=== PATIENT | male | born 1970 | race Two or more races ===

== ENCOUNTER 2017-08-07 09:59 | Emergency (ER) | payer BC ==
--- NOTE | 2017-08-07 11:01 | UC ---
Respiratory Complaint HPI - HPI Summary HPI Summary: began not feeling well last night ---this day sudden onset of SOB, sweating, chest heaviness-did not get a flu vaccine works in [employer] - History of Current Complaint Chief Complaint: UCRespiratory Stated Complaint: URI Time Seen by Provider: 08/07/17 11:05 Hx Obtained From: Patient Onset/Duration: Sudden Onset - begining to feel not well last night, Worse Since - this morning Timing: Constant Severity Initially: Moderate Severity Currently: Moderate Character: Cough: Nonproductive Aggravating Factors: Nothing Alleviating Factors: Nothing Associated Signs And Symptoms: Positive: Dyspnea, Chills - Allergies/Home Medications Allergies/Adverse Reactions: Allergies Allergy/AdvReac Type Severity Reaction Status Date / Time lidocaine Allergy Severe Difficulty Verified 08/07/17 11:13 Breathing trazodone Allergy Intermediate Vomiting Verified 08/07/17 11:13 Home Medications: Home Medications Albuterol HFA INHALER* [Ventolin HFA Inhaler*] 2 puff INH Q4HR 08/07/17 [ History Confirmed 08/07/17] Cyclobenzaprine TAB* [Flexeril 10 MG TAB*] 10 mg PO Q8HR 08/07/17 [History Confirmed 08/07/17] Fluticasone NASAL SPRAY 50MCG* [Flonase NASAL SPRAY 50MCG*] 1 spray NASAL DAILY 08/07/17 [History Confirmed 08/07/17] Hydrocodone/Acetaminophen [Hydrocodone-Acetamin 7.5-300] 1 tab PO TID PRN [History Confirmed 08/07/17] Lisinopril/HCTZ 20/25(NF) [Zestoretic 20/25(NF)] 1 tab PO DAILY 08/07/17 [ History Confirmed 08/07/17] Zolpidem Tartrate [Ambien] 10 mg PO DAILY 08/07/17 [History Confirmed 08/07/17] hydrOXYzine HCl [Hydroxyzine HCl] 10 mg PO DAILY 08/07/17 [History Confirmed 05/14] PMH/Surg Hx/FS Hx/Imm Hx Previously Healthy: No - chronic back pain Cardiovascular History: Other - cardiomyopathy Other Cardiovascular History: cardiomyopathy Respiratory History: Asthma - Surgical History Surgery Procedure, Year, and Place: splenic anuerysm. pulmonary emboli - Family History Known Family History: Positive: Cardiac Disease, Hypertension - Social History Occupation: Employed Full-time Lives: With Family Alcohol Use: None Substance Use Type: None Review of Systems Constitutional: Fever - 100.9 Skin: Negative Eyes: Negative ENT: Negative Respiratory: Shortness Of Breath Cardiovascular: Chest Pain Gastrointestinal: Negative Genitourinary: Negative Motor: Negative Neurovascular: Negative Musculoskeletal: Negative Neurological: Negative Psychological: Negative Is Patient Immunocompromised?: No All Other Systems Reviewed And Are Negative: Yes Physical Exam Triage Information Reviewed: Yes Appearance: Ill-Appearing, Pain Distress, Obese Vital Signs Reviewed: Yes Eye Exam: Normal Eyes: Positive: Conjunctiva Clear ENT Exam: Normal ENT: Positive: Normal ENT inspection, Hearing grossly normal, Pharynx normal. Negative: Nasal congestion, Nasal drainage Dental Exam: Normal Neck exam: Normal Neck: Positive: Supple, Nontender Respiratory Exam: Normal Respiratory: Positive: Chest non-tender, Lungs clear, Normal breath sounds, No accessory muscle use, Respiratory distress - mild-moderate SOB Cardiovascular Exam: Normal Cardiovascular: Positive: No Murmur, Pulses Normal, Brisk Capillary Refill, Tachycardia Musculoskeletal Exam: Normal Musculoskeletal: Positive: Strength Intact, ROM Intact, No Edema Neurological Exam: Normal Neurological: Positive: Alert, Muscle Tone Normal, Fatigued Psychological Exam: Normal Skin Exam: Normal UC Diagnostic Evaluation - EKG Cardiac Rate: Tachycardia Cardiac Rhythm: Sinus: Normal Ectopy: None ST Segment: Non-Specific Respiratory Course/Dx - Course Course Of Treatment: IV O2, EKG Transfer to ED Via EMS - Differential Dx/Diagnosis Provider Diagnoses: Shortness of breath, Chest Heaviness Discharge - Discharge Plan Condition: Guarded Disposition: [facility] Referrals: No Primary Care Phys,NOPCP [Primary Care Provider] -
[2017-08-07 11:12] VITALS: BP 141/83
== END 2017-08-07 11:25 | disposition short-term general hospital (02) ==
LOC: UCEAST 09:59
DX: R06.02 Shortness of breath (principal); R07.89 Other chest pain; I42.9 Cardiomyopathy, unspecified
CPT/HCPCS: 93005; 99203; G0463

== ENCOUNTER 2017-08-07 11:52 | Inpatient (IN) | payer BC ==
[2017-08-07] MEDS ORDERED: NS 0.9% 1000 ML* 1,000 ML IV ONE ×2 (12:15→20:31)
[2017-08-07] MEDS ORDERED: Acetaminophen TAB* 325 MG PO ONE ×2 (12:17→17:19)
[2017-08-07 12:32] LABS: ABS Basophils 0.1 10^3/ul (0-0.2); ABS Eosinophils 0.1 10^3/ul (0-0.6); ABS Monocytes 1.4 10^3/ul (0-0.8); ABS Neutrophils 16.6 10^3/ul (1.5-7.7); ABS Nucleated RBC 0 10^3/ul; Eosinophil % 0.6 % (0-6); Hematocrit 52 % (42-52); Hemoglobin 17.5 g/dl (14.0-18.0); Mean Corpuscular HGB Conc 34 g/dl (31-36); Mean Corpuscular Hemoglobin 28 pg (27-31); Mean Corpuscular Volume 82 fL (80-94); Mean Platelet Volume 8 um3 (7.4-10.4); Nucleated Red Blood Cells % 0; Platelet Count 273 10^3/ul (150-450); Red Blood Count 6.33 10^6/ul (4.0-5.4); Red Cell Distribution Width 15 % (10.5-15); White Blood Count 19.2 10^3/ul (3.5-10.8)
--- NOTE | 2017-08-07 13:15 | RAD ---
Indication: Upper respiratory infection. Shortness of breath. Possible flu. Comparison: No relevant prior exams available [place] [facility] [place]. Technique: Upright AP 1245 hours Report: Patchy alveolar and interstitial opacities. Grossly clear pleural spaces. Negative for pneumothorax. Upper normal heart size. Unremarkable central pulmonary vasculature. Diffuse central airway wall thickening. IMPRESSION: The constellation of findings favors airway inflammation/bronchitis and bronchopneumonia.
[2017-08-07] MEDS ORDERED: Ondansetron INJ* 2 MG/ML VIAL IV ONE (13:46)
[2017-08-07] MEDS ORDERED: Morphine INJ* 4 MG/ML 1 ML CARPUJECT IV ONE ×2 (13:46→17:22)
[2017-08-07] MEDS ORDERED: Morphine INJ* 4 MG/ML 1 ML SYRINGE (NEW SYRINGE VERSION) ONE (14:05)
[2017-08-07 14:27] LABS: Urine Appearance Clear; Urine Blood Negative (Negative); Urine Color Yellow; Urine Ketones Negative (Negative); Urine Protein Negative (Negative); Urine Specific Gravity 1.013 (1.010-1.030); Urine Urobilinogen Negative (Negative)
[2017-08-07] MEDS ORDERED: cefTRIAXone(*) 1 GM in NS 0.9% 50 ML* 50 ML IVPB ONE (15:30)
[2017-08-07] MEDS ORDERED: Azithromycin IV* 500 MG ADVAN VIAL/BAG IVPB ONE (16:22)
[2017-08-07] MEDS ORDERED: Vancomycin(*) 1,000 MG in NS 0.9% 250 ML* 250 ML IVPB ONE (17:21)
[2017-08-07] MEDS ORDERED: Metoclopramide IV* 5 MG/ML 2 ML VIAL IV ONE (17:23)
[2017-08-07] MEDS ORDERED: fentaNYL* 50 MCG/ML 2 ML VIAL (100 MCG VIAL) IV SLOW PU ONE (17:23)
[2017-08-07] MEDS ORDERED: Acetaminophen TAB* 325 MG PO PRN (17:31)
[2017-08-07] MEDS ORDERED: Morphine INJ* 4 MG/ML 1 ML SYRINGE (NEW SYRINGE VERSION) IV PRN (17:31)
[2017-08-07] MEDS: NS 0.9% 1000 ML* 1,000 ML IV SCH ×2 (17:35→22:01)
[2017-08-07] MEDS ORDERED: Albuterol HFA INHALER* 8 gm MDI INH SCH (18:00)
[2017-08-07] MEDS ORDERED: Iohexol 350* (CONTRAST) 500 ML MDV IV ONE (18:55)
--- NOTE | 2017-08-07 19:27 | RAD ---
Indication: Worst headache of life. Sepsis. Comparison: No relevant prior exams available [place] [facility] [place]. Technique: Noncontrast CT vertex of skull through foramen magnum. Report: The sulci, ventricles, and basal cisterns are normal for age. Eldridge matter white matter differentiation is preserved without evidence for edema. No intra or extra axial hemorrhage, mass, or fluid collection detected. Unremarkable visualized orbital contents. Unremarkable calvarium and skull base. Unremarkable scalp. The visualized paranasal sinuses and mastoid air spaces are clear. IMPRESSION: Negative unenhanced head CT.
--- NOTE | 2017-08-07 19:38 | RAD ---
INDICATION: Sepsis. Tachycardia. Possible pneumonia. History of pulmonary embolism. COMPARISON: August 07, 2017 TECHNIQUE: Multidetector CT images were obtained from the lung apices to the upper abdomen with 80 mL Omnipaque 350 IV contrast. Pulmonary angiogram protocol. Multiplanar reformation including with maximum intensity projection. REPORT: Rounded irregular margin 3.5 cm AP by 3.9 cm transverse region of airspace consolidation at the superior segment of the LEFT lower lobe with mass effect on the major fissure anteriorly. The region of consolidation contains bronchovascular markings/air bronchograms. Aside from minimal basilar atelectasis the lungs and pleural spaces are otherwise clear. Negative for thoracic lymphadenopathy. Negative for cardiomegaly or pericardial effusion. Normal diameter thoracic aorta without evidence for dissection. Suboptimal opacification of the pulmonary arteries limits the CT pulmonary angiogram. No filling defects are identified to the segmental and where conspicuous subsegmental pulmonary arteries to indicate pulmonary embolism. Enlargement of the main pulmonary artery measuring up to 3.9 cm transverse diameter compared to the adjacent ascending aorta measuring only 3.2 cm. Coils at the splenic artery corresponding with history of splenic artery aneurysm. Diffuse fatty infiltration of the liver. Negative for suspicious osseous lesions. Multilevel segmental ossification of the anterior longitudinal ligament of the thoracic spine consistent with Diffuse Idiopathic Skeletal Hyperostosis (DISH). IMPRESSION: 1. Rounded consolidation at the superior segment of the LEFT lower lobe is most consistent with pneumonia however imaging follow-up after therapy is warranted to assess for resolution and exclude neoplastic lesion. 2. Mildly limited CT pulmonary angiogram without compelling evidence for pulmonary embolism. 3. Enlargement of the main pulmonary artery suspicious for pulmonary arterial hypertension.
[2017-08-07] MEDS ORDERED: Ondansetron INJ* 2 MG/ML VIAL IV PRN (20:31)
[2017-08-07] MEDS: Morphine INJ* 4 MG/ML 1 ML CARPUJECT IV PRN (21:18)
[2017-08-07] MEDS: Heparin VIAL(*) 5000 UNITS/ML VIAL (FIVE THOUSAND) SUBCUT SCH (21:19)
[2017-08-07] MEDS: Cyclobenzaprine TAB* 10 MG PO SCH (21:27)
[2017-08-07] MEDS: hydrOXYzine HCL TAB* 10 MG PO PRN (21:28)
[2017-08-07] MEDS: CMCS:Melatonin (NF) 3 MG TAB PO SCH (21:28)
[2017-08-07] MEDS ORDERED: Albuterol 2.5 MG/3 ML NEB.SOL* (0.083%) INH PRN (21:32)
[2017-08-08] MEDS: Morphine INJ* 4 MG/ML 1 ML CARPUJECT IV PRN ×4 (02:07→22:05)
--- NOTE | 2017-08-08 03:05 | HP ---
CC: Dr. Diaz, [facility] * HISTORY AND PHYSICAL: DATE OF ADMISSION: 08/07/17 PRIMARY CARE PROVIDER: Dr. Diaz. MY ATTENDING WHILE IN HOSPITAL: Dr. Los Rodriguez.* (DICTATED BY OLIVERIO FRANKLIN) CHIEF COMPLAINT: Headache and general fatigue for 1 day. HISTORY OF PRESENT ILLNESS: Mr. Pederson is a 46-year-old male with a past medical history significant for asthma, hypertension, anxiety, and multiple unprovoked blood clots, who presents with 1 day of general weakness, fevers, headache, and difficulty breathing. The patient states that last night he felt very weak with no provoking factors, went to bed, woke up and feeling better, went to work, and at work, developed nausea and vomiting and the worst headache of his life. The patient also felt diaphoretic and had increased shortness of breath. 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 The patient describes his headache as being mainly frontal as well as traveling back across the top of his head to the base of his skull. The patient also states it goes down the back of his spine and his neck, but it hurts when moving his neck. The patient also had chest pain that started today in the morning. It is a dull ache below his left chest. It is not made worse by activity, does not radiate. There are no palliating or provoking factors. The patient complains of mild photophobia and states this is the worst headache of his life. The patient has had intermittent hand numbness in his left hand over the course of the past couple of days however, this preceded any of his other symptoms. The patient has had occasional nonproductive cough. The patient states his urine has been dark and he has had a couple of episodes of blurry vision. The patient was previously admitted to [facility] for 2 months in 2013 for unprovoked splenic artery thrombosis as well as multiple PEs and pneumonia. The patient states that he had a hypercoagulability workup at this time that did not have any conclusive results. The patient states that he was taken off anticoagulation 6 months after this episode. The patient states he had an IVC filter placed and removed at that time. While in the emergency room, the patient was found to have temperatures up to 102.8 after Tylenol. The patient was placed on 2 L nasal cannula for hypoxia. The patient's blood pressure was stable. The patient was persistently tachycardic up to the 120s. The patient's respiratory rate was slightly tachypneic. We were asked to evaluate for admission based on sepsis. The patient had 2 flu swabs both of which were negative. PAST MEDICAL HISTORY: Hypertension, anxiety, pneumonia, unprovoked PE, splenic artery thrombosis, MRSA cellulitis of his right knee, asthma. PAST SURGICAL HISTORY: Splenic embolectomy, IVC filter placement and removal, knee operation, removal of gynecomastia, and abdominoplasty. MEDICATIONS: 1. Lisinopril/hydrochlorothiazide 20/25 one tab p.o. daily. 2. Vicodin 7.5/300 one tab p.o. t.i.d. as needed. 3. Fluticasone nasal spray 1 spray nasal daily. 4. Flexeril 10 mg p.o. q.8 hours. 5. Albuterol 2 puffs inhalation q.4 hours as needed. 6. Breo Ellipta 200/25 one puff inhalation daily. 7. Hydroxyzine 10 mg p.o. t.i.d. as needed for anxiety. 8. Zolpidem 10 mg p.o. at bedtime. 9. Testosterone 200 mg IM Fridays. ALLERGIES: TRAZODONE, LIDOCAINE, IBUPROFEN. FAMILY HISTORY: The patient's mother and father both of them had MIs. The patient has strokes in his maternal grandparents and the patient's paternal grandparents of unknown cancers. SOCIAL HISTORY: The patient never smoked tobacco. The patient does not drink alcohol as it makes him nauseous. The patient smokes occasional marijuana. 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 At present, the patient is not and has 1 child. REVIEW OF SYSTEMS: A 14-point review of systems was reviewed and is negative except as above. PHYSICAL EXAMINATION GENERAL: The patient is a 46-year-old male, who appears his stated age and sitting in the bed, in [id number] distress from headache. HEENT: Head normocephalic, atraumatic. Sclerae anicteric. No conjunctival injection. Nasal mucosa moist. Oral mucosa moist. No pharyngeal erythema, discharge, or exudate. NECK: Tenderness to palpation over the left side of the neck. The patient had 1 episode of pain shooting down his back when his head was flexed forward. The patient has full range of motion of his neck. No nuchal rigidity. No carotid bruits auscultated. No lymphadenopathy. RESPIRATORY: Clear to auscultation bilaterally. No wheezes, rales, or rhonchi. Good air exchange bilaterally. Egophony negative. CARDIAC: Regular rate and rhythm. No murmurs, gallops, or rubs. Pulses 2+ in the bilateral dorsalis pedis, posterior tibialis, and radial areas. No bilateral lower extremity edema noted. No swelling in either calf. ABDOMEN: Soft, nontender, nondistended. Bowel sounds present and normoactive in all 4 quadrants. No hepatosplenomegaly. No abdominal bruits auscultated. NEURO: Cranial nerves II through XII intact except for transient blurring of the vision during testing of the visual aguirre to confrontation. Funduscopic exam unremarkable. Cerebellar testing performed without difficulty. Reflexes 2 + in the bilateral biceps, patellar, and ankle areas. Babinski is downgoing bilaterally. Strength preserved in upper and lower extremities distally and proximally. Sensation to light touch intact. PSYCHIATRIC: The patient is pleasant and cooperative. SKIN: Clean, dry, and intact. No rash. Scars consistent with previous gynecomastia reduction and abdominoplasty. DIAGNOSTIC STUDIES/LAB DATA: White blood cell count 6.33, hemoglobin 17.5, hematocrit 52, platelet count 273, neutrophil percent 86.6. Sodium 131, potassium 4.0, chloride 98, carbon dioxide 26, anion gap 7, BUN 15, creatinine 1.02, glucose 104, lactic acid 1.4, calcium 10.0. Bilirubin 0.8, AST 34, ALT 50 , alkaline phosphatase 65. Creatine kinase 396. Troponin I 0.00, 0.01, 0.01. C-reactive protein 7.4. BNP 19. Total protein 7.6, albumin 4.6, globulin 3.0, procalcitonin 0.1. Urine is benign. Influenza A and B negative x2. Electrocardiogram shows sinus tachycardia, early repolarization in V2, V3, and V4. No ST-T segment abnormalities. Left axis deviation. Chest x-ray read as constellation of findings favors airway inflammation/ bronchitis and bronchopneumonia. A brain CT read as negative on unenhanced head CT. Chest, thorax CTA read as chronic consolidation of superior segment of the left lower lobe, is most consistent with pneumonia. However, followup imaging after therapy is warranted to assess resolution to exclude neoplastic process. Limited CT, pulmonary angiogram without compelling evidence for pulmonary embolism, enlargement of the main pulmonary artery suspicious for pulmonary arterial hypertension. ASSESSMENT AND PLAN: Impression: The patient is a 46-year-old male with a past medical history significant for hypertension, asthma, pneumonia, unprovoked pulmonary embolism, and splenic artery thrombosis, who presents with 1 day of fevers, shortness of breath, weakness, and headache. The patient has a negative brain CT, equivocal meningeal signs without compelling evidence of meningitis on exam and confirmed lobar pneumonia on CT scan of the abdomen with negative scan for pulmonary embolism and will be admitted to the hospital for treatment of community- acquired pneumonia despite low procalcitonin as well as supportive care. 1. Lobar community-acquired pneumonia. The patient has confirmed community- acquired pneumonia on his CT scan of his chest. The patient will be admitted to the hospital for empiric therapy of ceftriaxone, azithromycin IV. The patient meets systemic inflammatory response syndrome criteria with tachycardia , fever, white blood cell count. The patient had 1 low blood pressure reading in 98/56 which is consistent with other readings. The patient is hypoxic. The patient is saturating well on 2 L of oxygen. The patient will have Streptococcus pneumoniae and legionella antigen collected. Sputum sample will also be collected. The patient will receive normal saline as part of the sepsis protocol. Tylenol for fevers. Recommend followup as above for resolution of lobar infiltrate. 2. Headache. The patient has described as the worst headache of his life since yesterday. The patient had an equivocal positive Brudzinski's, which initially had 1 episode of pain shooting down to his back, but was not reproducible with repeat exam. The patient had 2 episodes of blurring of his vision, which was transient. The patient had a negative CT of his head. The patient is septic, but has limited signs of meningitis. We will defer lumbar puncture at this time. The patient received 1 dose of vancomycin for empiric coverage of bacterial meningitis. We will not continue at this time. The patient should have a high index of suspicion for meningitis and a lumbar puncture should be performed if his mental status changes. 3. Asthma. Continue Ventolin inhaler and Breo Ellipta while in the hospital. The patient will have albuterol nebulizers available as needed for easing of shortness of breath. The patient's pulmonary exam does not have wheezing, does not indicate asthma exacerbation at this time. 4. Hypertension. Hold lisinopril and hydrochlorothiazide while in hospital due to sepsis. 5. Anxiety. Continue hydroxyzine. 6. History of unprovoked deep venous thrombosis. We will attempt to get records from the patient's hospitalization up [facility]. The patient does not have pulmonary embolism at this time. The patient has no signs of lower extremity deep venous thrombosis. The patient has pulmonary hypertension on his CTA of the chest. This could be a light complication of his pulmonary embolism. We will order an echocardiogram for the morning to assess left ventricular pressure and pulmonary artery pressure. This should be followed up outpatient when the patient is not acutely ill. 7. Chest pain. The patient has constant chest pain since yesterday, which has no palliating and provoking factors, not reproducible on palpation. The patient had no ischemic changes on his EKG and had negative troponins x3. An echo is ordered any way for the morning. This can also assess for wall motion abnormalities indicating acute coronary syndrome. This is unlikely at this point. 8. FEN. The patient will have a heart-healthy diet without caffeine. The patient will have fluids running at 125 mL an hour. For blood pressure support , the patient received 2 L boluses of normal saline. 9. DVT prophylaxis. The patient will have SCDs and heparin subcu while in the hospital. We will get records from [facility]. The patient may be a candidate for life-long anticoagulation due to his unprovoked pulmonary embolism. 10. Code status. The patient is a full code. The patient would like his surrogate decision maker to be Natasha Pla, who is his son's mother. 11. Disposition. The patient is admitted to inpatient. TIME SPENT: Approximately 90 minutes was spent on this admission, 45 of which was spent in [id number] with the patient obtaining history and physical and discussing treatment plan. This plan was discussed with my attending, Dr. Los Rodriguez, and he is in agreement. OLIVERIO FRANKLIN [id number]/[facility] #: [id number] CHARLENE
[2017-08-08] MEDS: NS 0.9% 1000 ML* 1,000 ML IV SCH ×2 (04:52→14:13)
[2017-08-08] MEDS: Cyclobenzaprine TAB* 10 MG PO SCH ×3 (06:13→22:06)
[2017-08-08] MEDS: Heparin VIAL(*) 5000 UNITS/ML VIAL (FIVE THOUSAND) SUBCUT SCH ×2 (06:16→22:05)
[2017-08-08 06:26] LABS: Hematocrit 44 % (42-52); Hemoglobin 14.7 g/dl (14.0-18.0); Mean Corpuscular HGB Conc 33 g/dl (31-36); Mean Corpuscular Hemoglobin 28 pg (27-31); Mean Corpuscular Volume 82 fL (80-94); Mean Platelet Volume 8 um3 (7.4-10.4); Platelet Count 214 10^3/ul (150-450); Red Blood Count 5.35 10^6/ul (4.0-5.4); Red Cell Distribution Width 15 % (10.5-15); White Blood Count 14.6 10^3/ul (3.5-10.8)
[2017-08-08 06:34] LABS: ABS Basophils 0 10^3/ul (0-0.2); ABS Eosinophils 0.1 10^3/ul (0-0.6); ABS Lymphocytes 1.6 10^3/ul (1.0-4.8); ABS Monocytes 1.6 10^3/ul (0-0.8); ABS Neutrophils 11.3 10^3/ul (1.5-7.7); ABS Nucleated RBC 0 10^3/ul; Eosinophil % 0.5 % (0-6); Lymphocyte % 10.9 % (25-47); Nucleated Red Blood Cells % 0.1
[2017-08-08 06:37] LABS: EGFR Non-African American 90.1 (>60)
[2017-08-08] MEDS: Fluticasone/Vilanterol MDI(NF) 200/25 MDI INH SCH (08:07)
[2017-08-08] MEDS ORDERED: Magnesium Sulfate 2 GM IV* 2 GM/50 ML BAG IVPB ONE (08:15)
--- NOTE | 2017-08-08 09:06 | PN ---
Subjective Date of Service: 08/08/17 Interval History: Pt stated that everything started to hurt 2 days ago. Denies cough , SOB. + fever yesterday. Also severe headache radiating to neck and neck pain Objective Active Medications: Acetaminophen (Tylenol Tab*) 650 mg PO Q6H PRN PRN Reason: FEVER/PAIN Albuterol (Ventolin Hfa Inhaler*) 2 puff INH Q4HR PRN PRN Reason: SOB/WHEEZING Albuterol (Ventolin 2.5 Mg/3 Ml Neb.Marielle*) 2.5 mg INH Q4H PRN PRN Reason: SOB/WHEEZING Cyclobenzaprine HCl (Flexeril Tab*) 10 mg PO Q8HR [facility] Last Admin: 08/08/17 06:13 Dose: 10 mg Fluticasone/Vilanterol (Breo Ellipta Mdi 200/25(Nf)) 1 puff INH DAILY [facility] Last Admin: 08/08/17 08:07 Dose: Not Given Heparin Sodium (Porcine) (Heparin Vial(*)) 5,000 units SUBCUT Q8HR [facility] Last Admin: 08/08/17 06:16 Dose: 5,000 units Hydroxyzine HCl (Atarax Tab*) 10 mg PO TID PRN PRN Reason: ANXIETY Last Admin: 08/07/17 21:28 Dose: 10 mg Sodium Chloride (Ns 0.9% 1000 Ml*) 1,000 mls @ 150 mls/hr IV PER RATE [facility] Last Admin: 08/08/17 04:52 Dose: 150 mls/hr Azithromycin 500 mg/ Sodium (Chloride) 250 mls @ 250 mls/hr IVPB Q24H [facility] Ceftriaxone Sodium 1 gm/ (Sodium Chloride) 50 mls @ 200 mls/hr IVPB Q24H [facility] Magnesium Sulfate (Magnesium Sulfate 2 Gm Iv*) 2 gm in 50 mls @ 50 mls/hr IVPB ONCE ONE Stop: 08/08/17 09:14 Melatonin (Melatonin (Nf)) 3 mg PO BEDTIME [facility] Last Admin: 08/07/17 21:28 Dose: 3 mg Morphine Sulfate (Morphine Inj (Syringe)*) 4 mg IV Q4H PRN PRN Reason: PAIN Last Admin: 08/08/17 08:02 Dose: 4 mg Ondansetron HCl (Zofran Inj*) 4 mg IV Q6H PRN PRN Reason: NAUSEA Last Admin: 08/07/17 21:19 Dose: 4 mg Vital Signs - 8 hr 08/08/17 08/08/17 08/08/17 01:50 02:07 04:52 Temperature 98.2 F Pulse Rate 97 Respiratory 20 18 20 Rate Blood Pressure 123/72 (mmHg) O2 Sat by Pulse 97 Oximetry 08/08/17 08/08/17 06:13 08:02 Temperature Pulse Rate Respiratory 18 20 Rate Blood Pressure (mmHg) O2 Sat by Pulse Oximetry Appearance: 46 yo m in nAD, aAOx3 Eyes: No Scleral Icterus, PERRLA Ears/Nose/Mouth/Throat: NL Teeth, Lips, Gums, Mucous Membranes Moist Neck: NL Appearance and Movements; NL JVP, Trachea Midline Respiratory: Symmetrical Chest Expansion and Respiratory Effort, Clear to Auscultation Cardiovascular: NL Sounds; No Murmurs; No JVD, RRR Abdominal: NL Sounds; No Tenderness; No Distention, No Hepatosplenomegaly Lymphatic: No Cervical Adenopathy Extremities: No Edema, No Clubbing, Cyanosis Skin: No Rash or Ulcers, No Nodules or Sclerosis Neurological: Alert and Oriented x 3, NL Muscle Strength and Tone, - - no neck stiffnes, but neck tender posteriorly Result Diagrams: 08/08/17 05:51 08/08/17 05:51 Assess/Plan/Problems-Billing Assessment: 46 yo M with H/o PE, splenic artery thombosis(s/p IVC filter placed -anticoagulated x 3 months , 4 yrs ago), HTN, chronic pain presents with myalgias, fever, the worst HOLLOWAY of his life - Patient Problems (1) Pneumonia Comment: LLL rounder consolidation on CT noted. Due to unusal appearance - recommended repeat CT in 4 weeks to pt. Sepsis due to pneumonia-improved Cont Ceftriaxone/Azithro (2) Headache Comment: improving. Due to h/o thrombosis will get CT venogram to eval for cerebral venous thrombosis Pt also will need an LP, although no stiff neck noted on eval today (3) Chronic pain Comment: cont home meds (4) DVT prophylaxis Comment: HSQ Status and Disposition: inpatient
[2017-08-08] MEDS ORDERED: Iohexol 350* (CONTRAST) 500 ML MDV IV ONE (09:11)
--- NOTE | 2017-08-08 09:44 | RAD ---
HISTORY: Rule out cerebral venous thrombosis, headache COMPARISONS: Head CT dated August 07, 2017 TECHNIQUE: Multiple contiguous axial CT scans were obtained of the head After the administration of nonionic intravenous contrast timed to the venous phase of contrast enhancement. Coronal and sagittal multiplanar reformations are submitted for review. Multiple 3-D maximum intensity projection reconstructions are also submitted for review. FINDINGS: VENOUS CIRCULATION: There is no venous sinus filling defect to suggest thrombosis. The venous sinuses are patent. The internal cerebral veins are dominant over the basal veins of Vinicius. The right transverse and sigmoid system is dominant over the left. The cavernous sinuses are symmetric without appreciable cavernous sinus thrombosis. The superior ophthalmic veins are normal in size and symmetric. ARTERIAL CIRCULATION: The cranial arterial circulation is unremarkable for technique. PERFUSION: There is no obvious parenchymal perfusion deficit. HEMORRHAGE/INFARCT: There is no hemorrhage or acute infarct. MASSES/SHIFT: There is no mass or shift. EXTRA-AXIAL SPACES: There are no extra-axial fluid collections. SULCI AND VENTRICLES: The sulci and ventricles are normal in size and position for the patient's stated age. CEREBRUM: There are no focal parenchymal abnormalities. BRAINSTEM: There are no focal parenchymal abnormalities. CEREBELLUM: There are no focal parenchymal abnormalities. PARANASAL SINUSES: The paranasal sinuses are clear. ORBITS: The orbits are unremarkable. BONES AND SOFT TISSUE: No bone or soft tissue abnormalities are noted. OTHER: There is no abnormal enhancement. IMPRESSION: NO VENOUS SINUS THROMBOSIS OR OCCLUSION
--- NOTE | 2017-08-08 10:51 | ED ---
Renee Mcknight Edward, scribed for Bill Hurtado MD on 08/07/17 at 1202 . Respiratory - HPI Summary HPI Summary: 46 y/o male presents to the ED c/o CP described as L side lung pain. Last night the pt felt weak. This morning the pt vomited at around 07:30 this morning. Associated sx: fever (currently). PMHx PE and DVTs - resolved now. Pt is not on blood thinners now. - History of Current Complaint Stated Complaint: URI Time Seen by Provider: 08/07/17 11:59 Hx Obtained From: Patient Onset/Duration: Lasting Hours Alleviating Factor(s): Nothing Associated Signs and Symptoms: Fever, Chest Pain Unrelated to Cough - at L side lungs - Allergy/Home Medications Allergies/Adverse Reactions: Allergies Allergy/AdvReac Type Severity Reaction Status Date / Time lidocaine Allergy Severe Difficulty Verified 08/07/17 11:13 Breathing trazodone Allergy Intermediate Vomiting Verified 08/07/17 11:13 ibuprofen Allergy See Comment Verified 08/07/17 12:13 Home Medications: Home Medications Fluticasone/Vilanterol MDI(NF) [Breo Ellipta MDI 200/25(NF)] 1 puff INH DAILY [History Confirmed 08/07/17] Testosterone Cypionate 200 mg IM .Fridays08/07/17 [History Confirmed 08/07/17] Zolpidem TAB* [Ambien TAB*] 10 mg PO BEDTIME PRN 08/07/17 [History Confirmed 05/14] hydrOXYzine HCL TAB* [Atarax 10 MG TAB*] 10 mg PO TID PRN 08/07/17 [History Confirmed 08/07/17] PMH/Surg Hx/FS Hx/Imm Hx Previously Healthy: No Cardiovascular History: Reports: Hx Hypertension Respiratory History: Reports: Hx Pulmonary Embolism - Surgical History Surgery Procedure, Year, and Place: splenic anuerysm. pulmonary emboli - Family History Known Family History: Positive: Cardiac Disease, Hypertension - Social History Alcohol Use: None Substance Use Type: Reports: None Smoking Status (MU): Never Smoked Tobacco Review of Systems Positive: Fever Eyes: Negative ENT: Negative Positive: Chest Pain - L side pain @ lung Respiratory: Negative Positive: Vomiting Genitourinary: Negative Musculoskeletal: Negative Skin: Negative Positive: Weakness Psychological: Normal All Other Systems Reviewed And Are Negative: Yes Physical Exam - Summary Physical Exam Summary: VITAL SIGNS: Reviewed. GENERAL: Patient is an obese male who is lying comfortable in the stretcher. Patient is not in any acute respiratory distress. HEAD AND FACE: No signs of trauma. No ecchymosis, hematomas or skull depressions. No sinus tenderness. EYES: PERRLA, EOMI x 2, No injected conjunctiva, no nystagmus. EARS: Hearing grossly intact. Ear canals and tympanic membranes are within normal limits. MOUTH: Oropharynx within normal limits. NECK: Supple, trachea is midline, no adenopathy, no JVD, no carotid bruit, no c- spine tenderness, neck with full ROM. CHEST: Symmetric, no tenderness at palpation LUNGS: Clear to auscultation bilaterally. No wheezing or crackles. CVS: Tachycardic, S1 and S2 present, no murmurs or gallops appreciated. ABDOMEN: Soft, non-tender. No signs of distention. No rebound no guarding, and no masses palpated. Bowel sounds are normal. EXTREMITIES: FROM in all major joints, no edema, no cyanosis or clubbing. NEURO: Alert and oriented x 3. No acute neurological deficits. Speech is normal and follows commands. SKIN: Dry and warm. Pt is diaphoretic. Triage Information Reviewed: Yes Vital Signs On Initial Exam: Initial Vitals Pulse Resp Pulse Ox 119 23 96 08/07/17 12:02 08/07/17 12:02 08/07/17 12:02 Vital Signs Reviewed: Yes Diagnostics - Vital Signs Vital Signs Temp Pulse Resp BP Pulse Ox 08/07/17 17:11 102.2 F 08/07/17 17:10 129/79 08/07/17 17:00 105 13 100 08/07/17 16:30 103 17 100 08/07/17 16:01 100.2 F 08/07/17 16:00 103 12 99 08/07/17 15:30 103 16 128/63 99 08/07/17 15:15 109 20 112/70 98 08/07/17 15:00 105 15 98 08/07/17 14:30 109 17 128/78 96 08/07/17 14:11 18 08/07/17 14:10 110 18 115/78 97 08/07/17 14:00 17 08/07/17 13:34 99.3 F 08/07/17 13:30 104 22 106/74 97 08/07/17 13:00 111 18 117/85 99 08/07/17 12:30 113 13 103/68 98 08/07/17 12:06 119 18 122/84 97 08/07/17 12:03 101.5 F 120 20 122/84 98 08/07/17 12:02 119 23 96 - Laboratory Lab Results: Lab Results 08/07/17 08/07/17 08/07/17 Range/Units 12:05 12:05 12:05 WBC 19.2 H (3.5-10.8) 10^3/ul RBC 6.33 H (4.0-5.4) 10^6/ul Hgb 17.5 (14.0-18.0) g/dl Hct 52 (42-52) % MCV 82 (80-94) fL MCH 28 (27-31) pg MCHC 34 (31-36) g/dl RDW 15 (10.5-15) % Plt Count 273 (150-450) 10^3/ul MPV 8 (7.4-10.4) um3 Neut % (Auto) 86.6 H (38-83) % Lymph % (Auto) 5.0 L (25-47) % [place] % (Auto) 7.5 (1-9) % Eos % (Auto) 0.6 (0-6) % Baso % (Auto) 0.3 (0-2) % Absolute Neuts (auto) 16.6 H (1.5-7.7) 10^3/ul Absolute Lymphs (auto) 1.0 (1.0-4.8) 10^3/ul Absolute Monos (auto) 1.4 H (0-0.8) 10^3/ul Absolute Eos (auto) 0.1 (0-0.6) 10^3/ul Absolute Basos (auto) 0.1 (0-0.2) 10^3/ul Absolute Nucleated RBC 0 10^3/ul Nucleated RBC % 0 Sodium 131 L (133-145) mmol/L Potassium 4.0 (3.5-5.0) mmol/L Chloride 98 L (101-111) mmol/L Carbon Dioxide 26 (22-32) mmol/L Anion Gap 7 (2-11) mmol/L BUN 15 (6-24) mg/dL Creatinine 1.02 (0.67-1.17) mg/dL Est GFR ( Amer) 101.6 (>60) Est GFR (Non-Af Amer) 79.0 (>60) BUN/Creatinine Ratio 14.7 (8-20) Glucose 104 H (70-100) mg/dL Lactic Acid 1.4 (0.5-2.0) mmol/L Calcium 10.0 (8.6-10.3) mg/dL Total Bilirubin 0.80 (0.2-1.0) mg/dL AST 34 (13-39) U/L ALT 50 (7-52) U/L Alkaline Phosphatase 65 (34-104) U/L Total Creatine Kinase 396 H (10-223) U/L Troponin I 0.00 (<0.04) ng/mL C-Reactive Protein 7.84 H (< 5.00) mg/L B-Natriuretic Peptide ( - 100) pg/mL Total Protein 7.6 (6.4-8.9) g/dL Albumin 4.6 (3.2-5.2) g/dL Globulin 3.0 (2-4) g/dL Albumin/Globulin Ratio 1.5 (1-3) Procalcitonin (<0.6) ng/mL Urine Color Urine Appearance Urine pH (5-9) Ur Specific [place] (1.010-1.030) Urine Protein (Negative) Urine Ketones (Negative) Urine Blood (Negative) Urine Nitrate (Negative) Urine Bilirubin (Negative) Urine Urobilinogen (Negative) Ur Leukocyte Esterase (Negative) Urine Glucose (Negative) Influenza A (Rapid) (Negative) Influenza B (Rapid) (Negative) 08/07/17 08/07/17 08/07/17 Range/Units 12:05 12:05 12:36 WBC (3.5-10.8) 10^3/ul RBC (4.0-5.4) 10^6/ul Hgb (14.0-18.0) g/dl Hct (42-52) % MCV (80-94) fL MCH (27-31) pg MCHC (31-36) g/dl RDW (10.5-15) % Plt Count (150-450) 10^3/ul MPV (7.4-10.4) um3 Neut % (Auto) (38-83) % Lymph % (Auto) (25-47) % [place] % (Auto) (1-9) % Eos % (Auto) (0-6) % Baso % (Auto) (0-2) % Absolute Neuts (auto) (1.5-7.7) 10^3/ul Absolute Lymphs (auto) (1.0-4.8) 10^3/ul Absolute Monos (auto) (0-0.8) 10^3/ul Absolute Eos (auto) (0-0.6) 10^3/ul Absolute Basos (auto) (0-0.2) 10^3/ul Absolute Nucleated RBC 10^3/ul Nucleated RBC % Sodium (133-145) mmol/L Potassium (3.5-5.0) mmol/L Chloride (101-111) mmol/L Carbon Dioxide (22-32) mmol/L Anion Gap (2-11) mmol/L BUN (6-24) mg/dL Creatinine (0.67-1.17) mg/dL Est GFR ( Amer) (>60) Est GFR (Non-Af Amer) (>60) BUN/Creatinine Ratio (8-20) Glucose (70-100) mg/dL Lactic Acid (0.5-2.0) mmol/L Calcium (8.6-10.3) mg/dL Total Bilirubin (0.2-1.0) mg/dL AST (13-39) U/L ALT (7-52) U/L Alkaline Phosphatase (34-104) U/L Total Creatine Kinase (10-223) U/L Troponin I (<0.04) ng/mL C-Reactive Protein (< 5.00) mg/L B-Natriuretic Peptide 19 ( - 100) pg/mL Total Protein (6.4-8.9) g/dL Albumin (3.2-5.2) g/dL Globulin (2-4) g/dL Albumin/Globulin Ratio (1-3) Procalcitonin 0.1 (<0.6) ng/mL Urine Color Urine Appearance Urine pH (5-9) Ur Specific [place] (1.010-1.030) Urine Protein (Negative) Urine Ketones (Negative) Urine Blood (Negative) Urine Nitrate (Negative) Urine Bilirubin (Negative) Urine Urobilinogen (Negative) Ur Leukocyte Esterase (Negative) Urine Glucose (Negative) Influenza A (Rapid) Negative (Negative) Influenza B (Rapid) Negative (Negative) 08/07/17 Range/Units 14:18 WBC (3.5-10.8) 10^3/ul RBC (4.0-5.4) 10^6/ul Hgb (14.0-18.0) g/dl Hct (42-52) % MCV (80-94) fL MCH (27-31) pg MCHC (31-36) g/dl RDW (10.5-15) % Plt Count (150-450) 10^3/ul MPV (7.4-10.4) um3 Neut % (Auto) (38-83) % Lymph % (Auto) (25-47) % [place] % (Auto) (1-9) % Eos % (Auto) (0-6) % Baso % (Auto) (0-2) % Absolute Neuts (auto) (1.5-7.7) 10^3/ul Absolute Lymphs (auto) (1.0-4.8) 10^3/ul Absolute Monos (auto) (0-0.8) 10^3/ul Absolute Eos (auto) (0-0.6) 10^3/ul Absolute Basos (auto) (0-0.2) 10^3/ul Absolute Nucleated RBC 10^3/ul Nucleated RBC % Sodium (133-145) mmol/L Potassium (3.5-5.0) mmol/L Chloride (101-111) mmol/L Carbon Dioxide (22-32) mmol/L Anion Gap (2-11) mmol/L BUN (6-24) mg/dL Creatinine (0.67-1.17) mg/dL Est GFR ( Amer) (>60) Est GFR (Non-Af Amer) (>60) BUN/Creatinine Ratio (8-20) Glucose (70-100) mg/dL Lactic Acid (0.5-2.0) mmol/L Calcium (8.6-10.3) mg/dL Total Bilirubin (0.2-1.0) mg/dL AST (13-39) U/L ALT (7-52) U/L Alkaline Phosphatase (34-104) U/L Total Creatine Kinase (10-223) U/L Troponin I (<0.04) ng/mL C-Reactive Protein (< 5.00) mg/L B-Natriuretic Peptide ( - 100) pg/mL Total Protein (6.4-8.9) g/dL Albumin (3.2-5.2) g/dL Globulin (2-4) g/dL Albumin/Globulin Ratio (1-3) Procalcitonin (<0.6) ng/mL Urine Color Yellow Urine Appearance Clear Urine pH 6.0 (5-9) Ur Specific [place] 1.013 (1.010-1.030) Urine Protein Negative (Negative) Urine Ketones Negative (Negative) Urine Blood Negative (Negative) Urine Nitrate Negative (Negative) Urine Bilirubin Negative (Negative) Urine Urobilinogen Negative (Negative) Ur Leukocyte Esterase Negative (Negative) Urine Glucose Negative (Negative) Influenza A (Rapid) (Negative) Influenza B (Rapid) (Negative) Result Diagrams: 08/08/17 05:51 08/08/17 05:51 Lab Statement: Any lab studies that have been ordered have been reviewed, and results considered in the medical decision making process. - Radiology CXR Xray Interpretation: Positive (See Comments) - The constellation of findings favors airway inflammation/bronchitis and bronchopneumonia. Radiology Interpretation Completed By: Radiologist - ED PHYSICIAN REVIEWS AND AGREES - Additional Comments Diagnostic Additional Comments: EKG - 12:06 - ST @ [address] elevations. Disposition - Course Assessment/Plan: 46 y/o male presents to the ED c/o CP described as L side lung pain. Last night the pt felt weak. This morning the pt vomited at around 07:30 this morning. Associated sx: fever (currently). PMHx PE and DVTs - resolved now. Pt is not on blood thinners now. EKG - 12:06 - ST @ [address] elevations. CXR SHOWS The constellation of findings favors airway inflammation/ bronchitis and bronchopneumonia. Test results without significant abnormalities except WBC 19.2 with L shift, sodium 131, CPK 396, CR-P 794, UA UTI. Influenza B negative. Initially pt given iv fluids, Tylenol for fever, Rocephin , and morphine for cp. At this point I discussed with Dr. Hewitt who accepted the pt for admission. A few hours later after dr hewitt assessed the pt, he also thinks there should be a differential dx of meningitis. However, he wants to wait for CTA chest and head ct that he ordered. If LP needed, he will consult with anesthesiologist. However at this point I also treated pt with vancomycin as a prophylactic treatment for meningitis. I reexamined the pt at this time, he has no focal deficits, meningeal signs, no neck pain or tenderness , and has full ROM of neck. Pt will be admitted to Dr. Gomez services. - Diagnoses Provider Diagnoses: Bronchopneumonia rule out sepsis Discharge - Discharge Plan Condition: Stable Disposition: ADMITTED TO [facility] documentation as recorded by the Renee hutchinson Edward accurately reflects the service I personally performed and the decisions made by me, Bill Hurtado MD.
[2017-08-08 11:36] LABS: INR 1.06 (0.77-1.02)
[2017-08-08] MEDS: hydrOXYzine HCL TAB* 10 MG PO PRN ×2 (11:50→22:04)
[2017-08-08] MEDS ORDERED: Bupivacaine 0.25% SDV* 30 ML ONE (12:36)
[2017-08-08] MEDS ORDERED: Perflutren Lipid Microsphere* 3 ML VIAL ONE (14:12)
--- NOTE | 2017-08-08 15:48 | ECHO ---
Patient: JITENDRA WHALEY [facility] Rec#: [id number] : 1970 Date: 08/08/2017 Age: 46y Height: 180.34 cm / 71.0 in Weight: 139.25 kg / 306.9 lbs Sex: M BSA: 2.53 Room#: [facility] Admit Date#: 08/07/2017 Type: Inpatient Referring: Bandar Stewart Reading: Khris Ayon MD Ironer Sock: Mónica Nieto RDCS CC: Bolivar Diaz MD Transthoracic Echocardiogram Indication: Chest Pain BP: 119/57 HR: 86 Rhythm: NSR with PACs Findings History: Asthma, HTN, anxiety, multiple PEs. Technical Comments: The study is technically difficult. The study is technically limited due to patient body habitus. Completed at 1515. Left Ventricle: The left ventricular chamber size is normal. Moderate concentric left ventricular hypertrophy is observed. Global left ventricular wall motion and contractility are within normal limits. There is normal left ventricular systolic function. The estimated ejection fraction is 55-60%. There is no consistent Doppler evidence of clinically significant diastolic dysfunction. Left Atrium: The left atrium is mild to moderately dilated. Right Ventricle: Moderator Band present. The right ventricular cavity size is normal. The right ventricular global systolic function is low normal. Right Atrium: The right atrium is moderately dilated. Aortic Valve: The aortic valve is trileaflet. There is no evidence of aortic valve thickening. There is no evidence of aortic regurgitation. There is no evidence of aortic stenosis. Mitral Valve: The mitral valve leaflets are mildly thickened. There is trace to mild mitral regurgitation. There is no evidence of mitral stenosis. Tricuspid Valve: The tricuspid valve leaflets are normal. There is mild tricuspid regurgitation. The right ventricular systolic pressure is estimated at 34 mmHg. There is evidence of borderline pulmonary hypertension. There is no tricuspid stenosis. Pulmonic Valve: The pulmonic valve appears normal. There is a trace pulmonic regurgitation. There is no pulmonic stenosis. Pericardium: There is no significant pericardial effusion. A pericardial fat pad is visualized. Aorta: There is no dilatation of the ascending aorta. There is no dilatation of the aortic arch. The aortic root is normal in size. Pulmonary Artery: The main pulmonary artery is not well visualized. Venous: The inferior vena cava appears normal in size. There is a greater than 50% respiratory change in the inferior vena cava dimension. Contrast: Definity was used to optimize study. 4 mL of diluted Definity was utilized. Intravenous contrast was used to enhance endocardial border definition. Conclusions Global left ventricular wall motion and contractility are within normal limits. There is normal left ventricular systolic function. The estimated ejection fraction is 55-60%. The right ventricular global systolic function is low normal. There is no evidence of aortic stenosis. There is trace to mild mitral regurgitation. There is mild tricuspid regurgitation. There is evidence of borderline pulmonary hypertension. There is no significant pericardial effusion. Measurements Name Value Normal Range RVIDd (AP) 2D 3.5 cm (0.9 - 2.6) RVDdMajor (2D) 3.7 cm (2.2 - 4.4) RAd ISD 4CH 5.6 cm (3.4 - 4.9) RA (A4C)W 4.4 cm (2.9 - 4.6) IVSd (2D) 1.4 cm (0.6 - 1) LVPWd (2D) 1.4 cm (0.6 - 1) LVIDd (2D) 4.6 cm (3.6 - 5.4) LVIDs (2D) 2.9 cm - LV FS (2D) 36 % (25 - 45) Aortic Annulus 2.2 cm (1.4 - 2.6) Ao root diameter (2D) 3.4 cm (2.1 - 3.5) Ascending Ao 3.2 cm (2.1 - 3.4) Aortic arch 2.6 cm (1.8 - 3.4) LA dimension (AP) 2D 4.4 cm (2.3 - 3.8) LAd ISD 4CH 6.2 cm (2.9 - 5.3) LA ISD 4CH W 5.3 cm (2.5 - 4.5) Name Value Normal Range LA ESV SP 4CH (A/L) 81 ml - LA ESV SP 2CH (A/L) 62 ml - LA ESV BP (A/L) 72 ml - LA ESV BP (A/L) index 28 ml/m2 - LA ESV SP 4CH (MOD) 70 ml - LA ESV SP 2CH (MOD) 57 ml - Name Value Normal Range MV E-wave Vmax 0.97 m/sec - MV deceleration time 240.4 msec - MV A-wave Vmax 0.81 m/sec - MV E:A ratio 1.19 ratio - LV septal e' Vmax 0.1 m/sec - LV lateral e' Vmax 0.09 m/sec - LV E:e' septal ratio 9.7 ratio - LV E:e' lateral ratio 10.78 ratio - Name Value Normal Range AV Vmax 1.4 m/sec - AV VTI 26.5 cm - AV peak gradient 7.37 mmHg - AV mean gradient 4.38 mmHg - LVOT Vmax 1.05 m/sec - LVOT VTI 20.25 cm - LVOT peak gradient 4.42 mmHg - LVOT mean gradient 2.35 mmHg - ANTONIO Vmax 1.04 m/sec - Name Value Normal Range TR Vmax 2.8 m/sec - TR peak gradient 31 mmHg - RAP 3 mmHg - RVSP 34 mmHg - IVC diameter 1.9 cm - Name Value Normal Range PV Vmax 0.85 m/sec - PV peak gradient 2.94 mmHg -
[2017-08-08] MEDS: cefTRIAXone(*) 1 GM in D5W 50 ML BAG* 50 ML IVPB SCH (16:06)
[2017-08-08] MEDS ORDERED: Azithromycin IV(*) 500 MG in NS 0.9% 250 ML* 250 ML IVPB SCH (17:00)
[2017-08-08] MEDS: Magnesium Oxide TAB* 400 MG PO SCH (18:17)
[2017-08-08] MEDS: Albuterol HFA INHALER* 8 gm MDI INH PRN (22:04)
[2017-08-08] MEDS: CMCS:Melatonin (NF) 3 MG TAB PO SCH (22:05)
[2017-08-09] MEDS: Morphine INJ* 4 MG/ML 1 ML CARPUJECT IV PRN ×3 (03:07→13:29)
[2017-08-09] MEDS: Heparin VIAL(*) 5000 UNITS/ML VIAL (FIVE THOUSAND) SUBCUT SCH ×2 (06:04→13:29)
[2017-08-09] MEDS: Cyclobenzaprine TAB* 10 MG PO SCH ×2 (06:04→13:29)
[2017-08-09 06:37] LABS: EGFR Non-African American 97.5 (>60)
[2017-08-09] MEDS: Fluticasone/Vilanterol MDI(NF) 200/25 MDI INH SCH (08:20)
[2017-08-09] MEDS: Magnesium Oxide TAB* 400 MG PO SCH (08:26)
[2017-08-09] MEDS ORDERED: Potassium Chlor TAB* 20 MEQ TAB.ER PO ONE (09:16)
[2017-08-09] MEDS: Albuterol HFA INHALER* 8 gm MDI INH PRN (13:29)
[2017-08-09 14:07] VITALS: BP 131/77
[2017-08-09] MEDS: cefTRIAXone(*) 1 GM in D5W 50 ML BAG* 50 ML IVPB SCH (16:08)
--- NOTE | 2017-08-10 14:03 | DS ---
CC: Dr. Diaz * DISCHARGE SUMMARY: DATE OF ADMISSION: 08/07/17 DATE OF DISCHARGE: 08/09/17 PRIMARY CARE PROVIDER: Dr. Diaz. DISCHARGE DIAGNOSES: 1. Left lower lobe pneumonia, acute. 2. Severe headache with negative head venogram to rule out for venous sinus thrombosis. The patient also had a lumbar puncture performed to rule out meningitis, which so far is negative for meningitis with cultures of the CSF fluid still pending. SECONDARY DIAGNOSES: 1. History of chronic pain. 2. History of splenic embolectomy and IVC filter placement. 3. History of unprovoked pulmonary embolism. 4. History of splenic artery thrombosis. 5. History of methicillin-resistant Staphylococcus aureus cellulitis of the right knee. 6. Hypertension. 7. Anxiety. 8. History of asthma. 9. History of gynecomastia, plastic surgery. MEDICATIONS AT DISCHARGE: Include: 1. Azithromycin 250 mg for a total of 3 days, then stop. 2. Cefdinir 300 mg 2 times a day for 7 days, then stop. 3. Albuterol inhaler 2 puffs every 4 hours p.r.n. 4. Flexeril 10 mg every 8 hours p.r.n. 5. Fluticasone nasal spray 1 spray nasal daily. 6. Breo Ellipta 1 puff daily. 7. Hydrocodone with acetaminophen on a p.r.n. basis. 8. Hydroxyzine 10 mg t.i.d. p.r.n. 9. Lisinopril/hydrochlorothiazide 20/25 mg 1 tablet daily. 10. Testosterone 200 mg IM on Fridays. 11. Ambien 10 mg at bedtime p.r.n. LABORATORY DATA AT DISCHARGE: Included: Sodium of 132, potassium 3.4, chloride 103, carbon dioxide 23, BUN 11, creatinine 0.85. Magnesium of 2.0. CRP was 68 on 08/08/17. On 08/08/17, white blood cell count of 14.6, hemoglobin of 14.7, hematocrit of 44, and platelets of 214. CSF fluid result showed colorless clear fluid, 2 WBCs, 1 RBC, protein total of 33 in the CSF and glucose total of 64 in the CSF. Influenza rapid testing was negative. Blood cultures were negative and CSF cultures are pending at the time of dictation, but there were no organisms seen on the Gram smear. CT angiogram of the chest obtained on 08/07/17, impression: "Rounded consolidation at the superior segment of the left lower lobe is most consistent with pneumonia. However, imaging followup after therapy is warranted to assess for resolution and exclude neoplastic lesion. Mildly limited CT, pulmonary angiogram without compelling evidence for pulmonary embolism. Enlargement of the main pulmonary artery suspicious for pulmonary arterial hypertension." HOSPITALIZATION COURSE: Taurus Pederson is a 46-year-old male who presented to the hospital complaining of feeling "terrible." He had a fever of 101.5 degrees. He had the worse headache of his life. His neck hurts and all the muscles hurt. His flu test was negative. His CT angiogram of the chest showed rounded consolidation and superior segment of left lower lobe. The patient was admitted and treated for pneumonia with azithromycin and ceftriaxone. For the continuation of headache and neck pain, a CT venogram to rule out for cerebral sinus thrombosis was performed, which was negative. The patient also had lumbar puncture performed, which was 2 white blood cells on evaluation and normal glucose levels as well as protein level. At this point, the patient's headache started resolving by the time his fever was controlled, as his leukocytosis improved with treatment with antibiotics. By the time of discharge , the patient was comfortable, had minimal headache and he was ready to go home. He is going to be discharged with recommendation to follow up with his primary care provider. Due to rounded appearance of his pneumonia, CT of the chest was recommended for followup in approximately 4 to 6 weeks. PHYSICAL EXAM AT THE TIME OF DISCHARGE: Blood pressure of 131/77, heart rate of 86 and regular, respiratory rate 18, oxygen saturation 98% on room air, temperature 97.9. General: The patient is a very pleasant 46-year-old male with a BMI of 42. The patient is in no acute distress. Alert, awake, and oriented x3. HEENT: Head: Atraumatic, normocephalic. Eyes: Pupils are equal , reactive to light and accommodation. Oropharynx is clear. Mucosa moist. Neck: Supple. No JVD, no bruits bilaterally. Cardiovascular: Regular rate and rhythm. No murmur. Respiratory: Faint crackles in left mid lung, otherwise clear. Abdomen: Soft, nontender. Bowel sounds are present in all 4 quadrants. Extremities: There is no edema. Pulses are +2 bilaterally. No clubbing or cyanosis. Please note that this is a short summary of the patient's hospitalization. Please refer to further medical records for details. TIME SPENT: Approximately 40 minutes was spent on the patient's discharge. [id number]/[facility] #: [id number] MTDD
== END 2017-08-09 19:00 | disposition home or self-care (01) | DRG 139 ==
LOC: ED 11:52 → MED 17:27
PROVIDERS: ADMIT Internal Medicine; ATTEND Internal Medicine
PROC: 009U3ZX Drainage of Spinal Canal, Percutaneous Approach, Diagnostic (ICD-10-PCS; principal; 2017-08-07)
DX: J18.1 Lobar pneumonia, unspecified organism (principal); Z68.41 Body mass index [BMI] 40.0-44.9, adult; R51 Headache; G89.29 Other chronic pain; F41.9 Anxiety disorder, unspecified; J45.909 Unspecified asthma, uncomplicated; M54.2 Cervicalgia; I10 Essential (primary) hypertension; F12.90 Cannabis use, unspecified, uncomplicated; E66.9 Obesity, unspecified; Z88.8 Allergy status to other drugs, medicaments and biological substances; Z82.49 Family history of ischemic heart disease and other diseases of the circulatory system; Z82.3 Family history of stroke; Z95.828 Presence of other vascular implants and grafts; Z86.14 Personal history of Methicillin resistant Staphylococcus aureus infection; Z86.711 Personal history of pulmonary embolism; Z80.9 Family history of malignant neoplasm, unspecified; Z86.718 Personal history of other venous thrombosis and embolism
CPT/HCPCS: 36415; 62270; 70450; 70496; 71045; 71275; 80048; 80053; 81003; 82550; 82945; 83605; 83735; 83880; 84145; 84157; 84484; 85025; 85610; 85730; 86140; 87040; 87070; 87205; 87502; 87641; 87899; 89051; 93005; 93306; 99203; 99285; A9270-GY; C8929; G0463; J0456; J0696; J1644; J2270; J2405; J2765; J3010; J3370; J3475; Q9967

== ENCOUNTER 2019-03-08 08:47 | Emergency (ER) | payer BC ==
[2019-03-08] MEDS ORDERED: Ondansetron INJ* 2 MG/ML VIAL IV ONE (09:06)
[2019-03-08] MEDS ORDERED: NS 0.9% 1000 ML** 1,000 ML IV ONE (09:06)
[2019-03-08 09:14] VITALS: BP 109/55
--- NOTE | 2019-03-08 09:15 | UC ---
Nausea/Vomiting/Diarrhea HPI - HPI Summary HPI Summary: 48-year-old male comes in with the chief complaint of nausea and vomiting. Started about an hour ago. Did also have some lower abdominal pain. Patient feels lightheaded. He's sweaty. Nothing makes this any better. No complaint of any headache. - History of Current Complaint Stated Complaint: NAUSEOUS Time Seen by Provider: 03/08/19 09:03 - Allergies/Home Medications Allergies/Adverse Reactions: Allergies Allergy/AdvReac Type Severity Reaction Status Date / Time lidocaine Allergy Severe Difficulty Verified 03/08/19 09:14 Breathing trazodone Allergy Intermediate Vomiting Verified 03/08/19 09:14 ibuprofen Allergy See Comment Verified 03/08/19 09:14 PMH/Surg Hx/FS Hx/Imm Hx Previously Healthy: Yes Respiratory History: Asthma - Surgical History Surgical History: Yes Surgery Procedure, Year, and Place: splenic anuerysm. pulmonary emboli - Family History Known Family History: Positive: Cardiac Disease, Hypertension - Social History Alcohol Use: None Substance Use Type: None Smoking Status (MU): Never Smoked Tobacco - Immunization History Most Recent Influenza Vaccination: never Most Recent Pneumonia Vaccination: never Review of Systems All Other Systems Reviewed And Are Negative: Yes Skin: Positive: Other - pale Eyes: Positive: Negative ENT: Positive: Negative Respiratory: Positive: Negative Cardiovascular: Positive: Negative Gastrointestinal: Positive: Abdominal Pain, Vomiting, Nausea Motor: Positive: Weakness - generalized Neurovascular: Positive: Negative Musculoskeletal: Positive: Negative Neurological: Positive: Weakness - generalized Psychological: Positive: Negative Is Patient Immunocompromised?: No Physical Exam Triage Information Reviewed: Yes Appearance: Well-Nourished, Ill-Appearing Vital Signs Reviewed: Yes Eye Exam: Normal Eyes: Positive: Conjunctiva Clear ENT: Positive: Other - oropharynx dry Neck: Positive: Supple Respiratory: Positive: Lungs clear, Normal breath sounds, No respiratory distress Cardiovascular: Positive: Tachycardia Abdomen Description: Positive: Nontender Bowel Sounds: Positive: Hypoactive Musculoskeletal: Positive: ROM Intact Neurological: Positive: Other: - Patient is pale and diaphoretic. He does respond to voice and follows commands. Psychological: Positive: Age Appropriate Behavior Skin Exam: Normal Naus/Vom/Diarrhea Course/Dx - Course Course Of Treatment: Patient was diaphoretic sweating in clinic. IV was placed by nursing normal saline started and Zofran 4 mg IV given and patient transported to the emergency department by ambulance. - Differential Dx/Diagnosis Provider Diagnosis: Nausea & vomiting, Abdominal pain Discharge ED - Sign-Out/Discharge Documenting (check all that apply): Patient Departure All imaging exams completed and their final reports reviewed: No Studies - Discharge Plan Condition: Stable Disposition: TRANS HIGHER LVL OF CARE FAC Referrals: Bolivar Diaz II, MD [Primary Care Provider] - - Billing Disposition and Condition Condition: STABLE Disposition: Trans Higher Lvl of Care Fac
== END 2019-03-08 09:20 | disposition short-term general hospital (02) ==
LOC: UCEAST 08:47
DX: R11.2 Nausea with vomiting, unspecified (principal); R10.9 Unspecified abdominal pain; J45.909 Unspecified asthma, uncomplicated
CPT/HCPCS: 96374; 99213; G0463; J2405

== ENCOUNTER 2019-03-08 09:39 | Inpatient (IN) | payer BC ==
[2019-03-08] MEDS ORDERED: Ondansetron INJ* 2 MG/ML VIAL IV ONE (09:42)
[2019-03-08] MEDS ORDERED: NS 0.9% 1000 ML** 1,000 ML IV ONE ×2 (09:42→10:07)
[2019-03-08] MEDS ORDERED: Morphine 4 MG/ML VIAL (1 ml) 4 MG/ML VIAL IV ONE (09:49)
[2019-03-08 10:05] LABS: ABS Eosinophils 0.1 10^3/ul (0-0.6); ABS Lymphocytes 0.7 10^3/ul (1.0-4.8); ABS Monocytes 0.8 10^3/ul (0-0.8); ABS Neutrophils 9.9 10^3/ul (1.5-7.7); Eosinophil % 0.9 %; Hematocrit 52 % (42-52); Hemoglobin 17.8 g/dL (14.0-18.0); Lymphocyte % 5.9 %; Mean Corpuscular HGB Conc 35 g/dL (31-36); Mean Corpuscular Hemoglobin 28 pg (27-31); Mean Corpuscular Volume 82 fL (80-94); Mean Platelet Volume 6.7 fL (7.4-10.4); Platelet Count 320 10^3/uL (150-450); Red Blood Count 6.27 10^6 /uL (4.18-5.48); Red Cell Distribution Width 14 % (10-15); White Blood Count 11.4 10^3/uL (3.5-10.8)
[2019-03-08 10:23] LABS: Albumin 4.7 g/dL (3.2-5.2); Albumin/Globulin Ratio 1.7 (1-3); BUN/Creatinine Ratio 13.1 (8-20); C Reactive Protein 2.77 mg/L (<8.01); Calcium 10.1 mg/dL (8.6-10.3); Globulin 2.7 g/dL (2-4); Magnesium 2.2 mg/dL (1.9-2.7); Potassium 3.5 mmol/L (3.5-5.0); Total Bilirubin 0.8 mg/dL (0.2-1.0); Total Protein 7.4 g/dL (6.4-8.9)
[2019-03-08 10:24] LABS: Troponin I 0.02 ng/mL (<0.04)
[2019-03-08] MEDS ORDERED: Iohexol 300* (CONTRAST) 10 ML SDV IV ONE (10:28)
[2019-03-08 10:35] LABS: Influenza A Molecular NEGATIVE (Negative); Influenza B Molecular NEGATIVE (Negative)
--- NOTE | 2019-03-08 11:23 | ED ---
Abdominal Pain/Male - HPI Summary HPI Summary: This patient is an otherwise healthy 48-year-old male with history of abdominoplasty and HTN presenting to the ED with acute onset severe mid abdominal pain which is non-radiating as well as nausea and vomiting. Denies any back pain. Patient presenting from convenient care. He is extremely diaphoretic on arrival, endorsing mid lower abdominal pain and profuse nausea. He was given 4 mg Zofran with some relief, however he continues to be nauseated on arrival and continues to have emesis. Denies any hematemesis. Denies hx of SBO, however has had abdominoplasty. Denies CP or SOB. Denies urinary sxs. Symptoms were acute onset, all starting at the same time starting approximately 1 hour [employer]. Denies back pain, HOLLOWAY, visual changes. - History of Current Complaint Chief Complaint: EDAbdPain Stated Complaint: N/V FROM CC Time Seen by Provider: 03/08/19 09:42 Hx Obtained From: Patient Onset/Duration: Sudden Onset Timing: Constant Severity Initially: Severe Severity Currently: Severe Pain Intensity: 10 Pain Scale Used: 0-10 Numeric Location: Umbilical Radiates: No Character: Sharp Aggravating Factor(s): Nothing Alleviating Factor(s): Nothing Associated Signs And Symptoms: Positive: Diaphoresis, Nausea, Vomiting. Negative: Constipation, Blood in Stool, Urinary Symptoms, Decreased Appetite, Diarrhea - Risk Factors Testicular Torsion: Negative Cardiac Risk Factors: Negative - Allergies/Home Medications Allergies/Adverse Reactions: Allergies Allergy/AdvReac Type Severity Reaction Status Date / Time lidocaine Allergy Severe Difficulty Verified 03/08/19 09:51 Breathing trazodone Allergy Intermediate Vomiting Verified 03/08/19 09:51 ibuprofen Allergy See Comment Verified 03/08/19 09:51 Home Medications: Home Medications DULoxetine DR CAP* [Cymbalta CAP*] 60 mg PO DAILY 03/08/19 [History Confirmed ] LORazepam TAB(*) [Ativan 0.5 MG TAB (*)] 0.5 mg PO BID 03/08/19 [History Confirmed 03/08/19] Levalbuterol HFA INHALER* [Xopenex Hfa Inhaler*] 1 - 2 puff INH Q4H PRN [History Confirmed 03/08/19] Ondansetron TAB* [Zofran 4 MG Tab*] 8 mg PO DAILY PRN 03/08/19 [History Confirmed 03/08/19] Pantoprazole TAB * [Protonix TAB*] 40 mg PO DAILY 03/08/19 [History Confirmed ] PMH/Surg Hx/FS Hx/Imm Hx Previously Healthy: Yes Endocrine/Hematology History: Denies: Hx Diabetes Cardiovascular History: Reports: Hx Hypertension Respiratory History: Reports: Hx Pulmonary Embolism History: Denies: Hx Renal Disease Sensory History: Denies: Hx Contacts or Glasses, Hx Hearing Aid Opthamlomology History: Denies: Hx Contacts or Glasses - Cancer History Cancer Type, Location and Year: neck cancer 2018 - Surgical History Surgery Procedure, Year, and Place: splenic anuerysm. pulmonary emboli - Immunization History Hx Pertussis Vaccination: No Immunizations Up to Date: Yes Infectious Disease History: Yes Infectious Disease History: Denies: Traveled Outside the [place] in Last 30 Days - Family History Known Family History: Positive: Cardiac Disease, Hypertension - Social History Occupation: Employed Full-time Lives: With Family Alcohol Use: None Hx Substance Use: No Substance Use Type: Reports: None Hx Tobacco Use: No Smoking Status (MU): Never Smoked Tobacco Review of Systems Negative: Fever, Chills, Fatigue, Skin Diaphoresis Negative: Palpitations, Chest Pain Negative: Shortness Of Breath, Cough Positive: Abdominal Pain, Vomiting, Nausea. Negative: Diarrhea Genitourinary: Negative Positive: no symptoms reported, see HPI Negative: Arthralgia, Myalgia Skin: Negative All Other Systems Reviewed And Are Negative: Yes Physical Exam Triage Information Reviewed: Yes Vital Signs On Initial Exam: Initial Vitals Pulse BP Pulse Ox 80 107/68 100 03/08/19 09:48 03/08/19 09:48 03/08/19 09:48 Vital Signs Reviewed: Yes Appearance: Positive: Well-Appearing, Well-Nourished Skin: Positive: Warm, Skin Color Reflects Adequate Perfusion Head/Face: Positive: Normal Head/Face Inspection Eyes: Positive: EOMI, CARLENE, Conjunctiva Clear Neck: Positive: Supple, No Lymphadenopathy Respiratory/Lung Sounds: Positive: Clear to Auscultation, Breath Sounds Present Cardiovascular: Positive: RRR, Pulses are Symmetrical in both Upper and Lower Extremities Abdomen Description: Positive: Other: - tenderness to the abdomen diffusely - unable to perform psoas or obturator d/t pain Bowel Sounds: Positive: Present Musculoskeletal: Positive: Strength/ROM Intact Neurological: Positive: Speech Normal Psychiatric: Positive: Normal, Affect/Mood Appropriate AVPU Assessment: Alert Diagnostics - Vital Signs Vital Signs Temp Pulse Resp BP Pulse Ox 03/08/19 10:18 75 100 03/08/19 10:00 83 18 100 03/08/19 09:51 97.0 F 81 16 107/68 100 03/08/19 09:48 80 107/68 100 - Laboratory Lab Results: Lab Results 03/08/19 03/08/19 03/08/19 Range/Units 09:54 09:54 09:54 WBC 11.4 H (3.5-10.8) 10^3/uL RBC 6.27 H (4.18-5.48) 10^6 /uL Hgb 17.8 (14.0-18.0) g/dL Hct 52 (42-52) % MCV 82 (80-94) fL MCH 28 (27-31) pg MCHC 35 (31-36) g/dL RDW 14 (10-15) % Plt Count 320 (150-450) 10^3/uL MPV 6.7 L (7.4-10.4) fL Neut % (Auto) 86.3 % Lymph % (Auto) 5.9 % [place] % (Auto) 6.7 % Eos % (Auto) 0.9 % Baso % (Auto) 0.2 % Absolute Neuts (auto) 9.9 H (1.5-7.7) 10^3/ul Absolute Lymphs (auto) 0.7 L (1.0-4.8) 10^3/ul Absolute Monos (auto) 0.8 (0-0.8) 10^3/ul Absolute Eos (auto) 0.1 (0-0.6) 10^3/ul Absolute Basos (auto) 0.0 (0-0.2) 10^3/ul Absolute Nucleated RBC 0.0 10^3/ul Nucleated RBC % 0.0 Sodium 120 L (135-145) mmol/L Potassium 3.5 (3.5-5.0) mmol/L Chloride 86 L (101-111) mmol/L Carbon Dioxide 22 (22-32) mmol/L Anion Gap 12 H (2-11) mmol/L BUN 13 (6-24) mg/dL Creatinine 0.99 (0.67-1.17) mg/dL Est GFR ( Amer) 98.0 (>60) Est GFR (Non-Af Amer) 81.0 (>60) BUN/Creatinine Ratio 13.1 (8-20) Glucose 148 H (70-100) mg/dL Lactic Acid 2.4 H* (0.5-2.0) mmol/L Calcium 10.1 (8.6-10.3) mg/dL Magnesium 2.2 (1.9-2.7) mg/dL Total Bilirubin 0.80 (0.2-1.0) mg/dL AST 69 H (13-39) U/L ALT 62 H (7-52) U/L Alkaline Phosphatase 96 (34-104) U/L Troponin I 0.02 (<0.04) ng/mL C-Reactive Protein 2.77 (<8.01) mg/L Total Protein 7.4 (6.4-8.9) g/dL Albumin 4.7 (3.2-5.2) g/dL Globulin 2.7 (2-4) g/dL Albumin/Globulin Ratio 1.7 (1-3) Lipase 14 (11.0-82.0) U/L Influenza A (Rapid) (Negative) Influenza B (Rapid) (Negative) 03/08/19 Range/Units 10:10 WBC (3.5-10.8) 10^3/uL RBC (4.18-5.48) 10^6 /uL Hgb (14.0-18.0) g/dL Hct (42-52) % MCV (80-94) fL MCH (27-31) pg MCHC (31-36) g/dL RDW (10-15) % Plt Count (150-450) 10^3/uL MPV (7.4-10.4) fL Neut % (Auto) % Lymph % (Auto) % [place] % (Auto) % Eos % (Auto) % Baso % (Auto) % Absolute Neuts (auto) (1.5-7.7) 10^3/ul Absolute Lymphs (auto) (1.0-4.8) 10^3/ul Absolute Monos (auto) (0-0.8) 10^3/ul Absolute Eos (auto) (0-0.6) 10^3/ul Absolute Basos (auto) (0-0.2) 10^3/ul Absolute Nucleated RBC 10^3/ul Nucleated RBC % Sodium (135-145) mmol/L Potassium (3.5-5.0) mmol/L Chloride (101-111) mmol/L Carbon Dioxide (22-32) mmol/L Anion Gap (2-11) mmol/L BUN (6-24) mg/dL Creatinine (0.67-1.17) mg/dL Est GFR ( Amer) (>60) Est GFR (Non-Af Amer) (>60) BUN/Creatinine Ratio (8-20) Glucose (70-100) mg/dL Lactic Acid (0.5-2.0) mmol/L Calcium (8.6-10.3) mg/dL Magnesium (1.9-2.7) mg/dL Total Bilirubin (0.2-1.0) mg/dL AST (13-39) U/L ALT (7-52) U/L Alkaline Phosphatase (34-104) U/L Troponin I (<0.04) ng/mL C-Reactive Protein (<8.01) mg/L Total Protein (6.4-8.9) g/dL Albumin (3.2-5.2) g/dL Globulin (2-4) g/dL Albumin/Globulin Ratio (1-3) Lipase (11.0-82.0) U/L Influenza A (Rapid) Negative (Negative) Influenza B (Rapid) Negative (Negative) Result Diagrams: 03/08/19 09:54 03/08/19 09:54 Lab Statement: Any lab studies that have been ordered have been reviewed, and results considered in the medical decision making process. Abdominal Pain Male Course/Dx - Course Course Of Treatment: During this course of treatment, the patient is evaluated for severe acute onset abdominal pain which is suprapubically radiating to the umbilicus which is nonradiating otherwise. Denies any back pain. Denies any urinary symptoms. He is profuse nausea and vomiting on arrival and was extremely diaphoretic and pale. On arrival into the ED, he is given 2L fluids and Zofran immediately. Labs were obtained which shows patient is hyponatremic with a slightly elevated white count at 11,000, elevated AST and ALT not consistent with hepatitis or alcoholic or fatty liver disease. Lactate 2.4. Troponin 0.02. CRP WNL. Flu negative. CT abd/pelvis obtained: Mucosal thickening of the descending colon suggestive of colitis. Patient continues to be nauseous and is given Reglan and another liter fluids to total 3 L in the ED. Discussed case with Dr. Rhodes who will admit for further evaluation and fluid repletion. MRSA nasal pending. - Diagnoses Differential Diagnosis/HQI/PQRI: Appendicitis, Bowel Obstruction, Constipation, Diverticulitis, Renal Colic, Ureteral Stone, Urinary Tract Infection Provider Diagnoses: Colitis, Hyponatremia, Nausea & vomiting - Provider Notifications Discussed Care Of Patient With: Maribell Rhodes Time Discussed With Above Provider: 11:45 Instructed by Provider To: Admit As Inpatient Discharge ED - Sign-Out/Discharge Documenting (check all that apply): Patient Departure Patient Received Moderate/Deep Sedation with Procedure: No - Discharge Plan Condition: Fair Disposition: ADMITTED TO [facility] Referrals: Bolivar Diaz II, MD [Primary Care Provider] - - Billing Disposition and Condition Condition: FAIR Disposition: Admitted to [facility]
[2019-03-08] MEDS ORDERED: metroNIDAZOLE TAB* 250 MG PO ONE (11:45)
[2019-03-08] MEDS ORDERED: Ciprofloxacin TAB* 500 MG PO ONE (11:45)
[2019-03-08] MEDS ORDERED: Metoclopramide IV* 5 MG/ML 2 ML VIAL IV ONE (11:46)
[2019-03-08] MEDS ORDERED: NS 0.9% 1000 ML** 1,000 ML IV SCH (13:45)
[2019-03-08] MEDS ORDERED: Zolpidem TAB* 10 MG PO PRN (13:49)
[2019-03-08] MEDS ORDERED: cefTRIAXone(*) 2 GM in NS 0.9% 100 ML* 100 ML IVPB SCH (14:00)
[2019-03-08] MEDS ORDERED: cefTRIAXone(*) 1 GM in NS 0.9% 50 ML* 50 ML IVPB SCH (15:00)
[2019-03-08] MEDS: Cyclobenzaprine TAB* 10 MG PO PRN (16:25)
[2019-03-08] MEDS: Heparin VIAL(*) 5000 UNITS/ML VIAL (FIVE THOUSAND) SUBCUT SCH ×2 (16:26→22:00)
[2019-03-08] MEDS: Acetaminophen TAB* 325 MG PO PRN ×2 (16:58→22:01)
[2019-03-08 17:24] LABS: BUN/Creatinine Ratio 13.2 (8-20); Calcium 9.3 mg/dL (8.6-10.3); EGFR African American 108.1 (>60); EGFR Non-African American 89.3 (>60); Potassium 4.7 mmol/L (3.5-5.0)
[2019-03-08] MEDS: Morphine INJ* 2 MG/ML 1 ML SYRINGE (TWO MG - NEW SYRINGE VERSION) IV PRN ×2 (18:22→20:44)
[2019-03-08] MEDS: LORazepam TAB(*) 0.5 MG PO SCH (20:44)
[2019-03-08] MEDS: Ondansetron INJ* 2 MG/ML VIAL IV PRN (20:44)
[2019-03-08] MEDS: cefTRIAXone(*) 1 GM in NS 0.9% 50 ML* 50 ML IVPB SCH (20:44)
[2019-03-08] MEDS: metroNIDAZOLE IV 500 MG/100ML* 500 MG/100 ML BAG IVPB SCH (21:18)
--- NOTE | 2019-03-09 00:25 | HP ---
CC: Dr. Diaz * HISTORY AND PHYSICAL: DATE OF ADMISSION: 03/08/19 PRIMARY CARE PROVIDER: Dr. Diaz. ATTENDING PHYSICIAN WHILE IN THE HOSPITAL: Dr. Maribell Rhodes * (dictated by Marija Mcintosh NP). CHIEF COMPLAINT: Weakness, abdominal pain. HISTORY OF PRESENT ILLNESS: Mr. Pederson is a 48-year-old male with a past medical history significant for hypertension, anxiety, unprovoked PE, history of splenic arterial thrombosis, history of MRSA, history of head and neck cancer status post chemo and radiation completed in May of 2018, who presented to the emergency room with acute onset of nausea, vomiting, and abdominal pain. The patient reports that he was feeling week and fatigued for the past 2 days. He reports this morning he developed some nausea and abdominal cramping as well as fever and chills. He was at work and was sent to urgent care. At urgent care he was diaphoretic and complaining of mid lower abdominal pain and nausea. Due to those findings, he was sent to the emergency room for further evaluation. While in the emergency room, the patient had routine lab work. He had a CT of the abdomen and pelvis which showed colitis. His CBC showed a white count of 11.4. Due to these findings and the patient's continued abdominal pain hospital medicine was asked to see and evaluate for admission. The patient denies black or tarry stools. He denies any vomiting of blood. PAST MEDICAL HISTORY: Significant for: 1. Hypertension. 2. Anxiety. 3. Unprovoked PE. 4. History of splenic artery thrombosis. 5. History of MRSA and cellulitis of the right knee. 6. Asthma. 7. History of neck and hip cancer status post chemo and radiation completed in 2018. PAST SURGICAL HISTORY: 1. Splenic embolectomy. 2. IVC filter placement and removal. 3. Knee operation. 4. Removal of gynomastia. 5. Abdominoplasty. 6. Splenic stents. HOME MEDICATIONS: 1. Lisinopril/hydrochlorothiazide 20/25 one tablet p.o. daily. 2. Vicodin 7.5/325 one tablet p.o. t.i.d. as needed. 3. Fluticasone nasal spray 1 spray nasal daily. 4. Flexeril 10 mg p.o. q.8 hours as needed. 5. Albuterol 2 puffs q.4 hours as needed. 6. Breo Ellipta 200/25 one puff inhale daily. 7. Hydroxyzine 50 mg p.o. t.i.d. p.r.n. 8. Ambien 10 mg at bedtime. 9. Testosterone 200 mg IM on Fridays. 10. Pantoprazole 40 mg p.o. daily. 11. Ativan 1 mg in the morning and 0.5 mg in the afternoon and evening. 12. Zofran 8 mg p.o. daily p.r.n. ALLERGIES: TRAZODONE, LIDOCAINE, IBUPROFEN. FAMILY HISTORY: The patient reports both his mother and father both had MIs. Maternal grandparents with strokes. Father had cancer of the liver. SOCIAL HISTORY: The patient has never smoked. He does not drink any alcohol. He denies any tobacco use. 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 He has 1 child. Surrogate decision maker in the event he is unable to make his own decisions is his son Danyel Oliveira or Susie Pal, her phone number is [phone]. REVIEW OF SYSTEMS: A 14-point review of systems was completed, all pertinent positives were mentioned in the HPI. Otherwise were negative. PHYSICAL EXAMINATION GENERAL: At this time Mr. Pederson is a 48-year-old male. He is resting on the stretcher in the emergency room. He does not appear to be in any acute distress. VITAL SIGNS: Temperature 97.8, heart rate 92, respirations 18, O2 saturation 100%, blood pressure 137/89. HEENT: Head is atraumatic and normocephalic. Eyes: EOMs are intact. Sclerae anicteric and not pale. Oral mucosa appear to be moist. NECK: Supple. LUNGS: Clear to auscultation bilaterally. No wheezes, rales, or rhonchi. CARDIAC: S1, S2. Regular rate and rhythm. No murmurs, rubs, or gallops. ABDOMEN: Soft. He does have lower abdominal tenderness with palpation. Bowel sounds are active x4. NEUROLOGIC: He is awake, alert, and oriented x3. Speech is clear. Thought process is intact. There is no gross focal deficits. SKIN: Intact. DIAGNOSTIC STUDIES/LAB DATA: WBC are 11.4, RBC 6.27, hemoglobin 17.8, hematocrit 52, platelet count 320. Sodium 120, potassium 3.5, chloride 86, carbon-dioxide is 22, BUN 12, BUN is 13, creatinine 0.99, glucose 148, lactic acid is 2.4, calcium 10.1. AST are 69, ALTs are 62. Lipase is 14. Flu A and B were both negative. He had a chest x-ray. Radiologist Impression: No evidence of pneumonia, stigmata for obstructive lung disease, resolution of previous rounded area of consolidation in the superior segment of the left lower lobe in July of 2017. He had an electrocardiogram which showed sinus rhythm at a rate of 78. He had a CT of the abdomen and pelvis. Mucosal thickening in the descending colon suggestive of colitis. ASSESSMENT AND PLAN: Mr. Pederson is a 48-year-old male with a past medical history significant for hypertension, anxiety, history of unprovoked PE, splenic artery thrombosis, history of methicillin-resistant Staphylococcus aureus, asthma, head and neck cancer, status post chemoradiation in 2018, who presented to the emergency room with complaints of lower abdominal pain, diarrhea, nausea, and vomiting. Found to have colitis. He will be admitted for : 1. Abdominal pain. I suspect this is related to his underlying colitis. The patient does have an elevated white count and reported fever and chills. I will place him on ceftriaxone and Flagyl. I will give him IV fluids, normal saline at 100 cc per hour. 2. Hyponatremia. The patient does have hyponatremia with a sodium of 120. The patient does report that he drinks large amounts of water daily. We will continue with IV normal saline at 125 cc per hour. We will repeat his BMP at 1800 and in the a.m. 3. Hypertension. I am going to hold the patient's lisinopril and hydrochlorothiazide as he is having diarrhea and underlying colitis. 4. Asthma. He can continue on his Breo Ellipta as previously prescribed. 5. Anxiety. He can have hydroxyzine 50 mg 3 times a day as needed for anxiety and Ativan as needed for anxiety. 6. Acid reflux. He can continue on pantoprazole 40 mg p.o. daily. 7. FEN. He can have a clear liquid diet. 8. Code status. He is a full code. 9. DVT prophylaxis. I will place him on heparin subcu. TIME SPENT: Time spent on this admission was 60 minutes, greater than half that time was spent at the bedside reviewing the events leading thus far to his hospitalization, performing the physical exam, and reviewing my plan of care. I have discussed with my attending Dr. Maribell Rhodes, she is in agreement with my plan. MARIJA MCINTOSH NP [id number]/[facility] #: [id number] CHARLENE
[2019-03-09] MEDS: Morphine INJ* 2 MG/ML 1 ML SYRINGE (TWO MG - NEW SYRINGE VERSION) IV PRN ×6 (00:56→22:15)
[2019-03-09] MEDS: Cyclobenzaprine TAB* 10 MG PO PRN (00:58)
[2019-03-09] MEDS: NS 0.9% 1000 ML** 1,000 ML IV SCH ×3 (01:12→22:30)
[2019-03-09] MEDS: metroNIDAZOLE IV 500 MG/100ML* 500 MG/100 ML BAG IVPB SCH ×3 (03:48→22:26)
[2019-03-09] MEDS: Ondansetron INJ* 2 MG/ML VIAL IV PRN ×2 (03:49→22:16)
[2019-03-09 06:34] LABS: ABS Eosinophils 0.1 10^3/ul (0-0.6); ABS Lymphocytes 0.5 10^3/ul (1.0-4.8); ABS Monocytes 1.3 10^3/ul (0-0.8); ABS Neutrophils 9.1 10^3/ul (1.5-7.7); Eosinophil % 0.6 %; Hematocrit 44 % (42-52); Hemoglobin 15.2 g/dL (14.0-18.0); Lymphocyte % 4.7 %; Mean Corpuscular HGB Conc 35 g/dL (31-36); Mean Corpuscular Hemoglobin 28 pg (27-31); Mean Corpuscular Volume 81 fL (80-94); Mean Platelet Volume 6.9 fL (7.4-10.4); Platelet Count 304 10^3/uL (150-450); Red Blood Count 5.42 10^6 /uL (4.18-5.48); Red Cell Distribution Width 14 % (10-15)
[2019-03-09 06:53] LABS: Albumin 3.8 g/dL (3.2-5.2); BUN/Creatinine Ratio 10.5 (8-20); Calcium 8.8 mg/dL (8.6-10.3); EGFR African American 115.3 (>60); EGFR Non-African American 95.3 (>60); Globulin 1.9 g/dL (2-4); Potassium 3.7 mmol/L (3.5-5.0); Total Bilirubin 0.9 mg/dL (0.2-1.0); Total Protein 5.7 g/dL (6.4-8.9)
[2019-03-09] MEDS: Heparin VIAL(*) 5000 UNITS/ML VIAL (FIVE THOUSAND) SUBCUT SCH ×3 (07:19→22:23)
[2019-03-09] MEDS: Mometasone/Formoter 200/5 MDI INH SCH ×2 (09:05→20:32)
[2019-03-09] MEDS: LORazepam TAB(*) 0.5 MG PO SCH (09:19)
[2019-03-09] MEDS: Pantoprazole TAB * 40 MG TAB PO SCH (09:19)
[2019-03-09] MEDS: Fluticasone NASAL SPRAY 50MCG* 16 gm SPRAY BTL BOTH NARES SCH (09:19)
[2019-03-09] MEDS: DULoxetine DR CAP* 60 MG CAP.DR PO SCH (09:19)
--- NOTE | 2019-03-09 09:21 | PN ---
Subjective Date of Service: 03/09/19 Interval History: Patient seen and examined at bedside. Mr. Pederson is a 48 yo male who presented to the ER yesterday with concern for abdominal pain, nausea, and vomiting. He reports that he does not feel any better today, continues to endorse diffuse abdominal pain, nausea. Has not really eaten anything and has sipped on very little, so has not vomited. Reports passing blood in the toilet two times yesterday/overnight. Denies CP, SOB, dizziness, or other concerns. Family History: Unchanged from Admission Social History: Unchanged from Admission Past Medical History: Unchanged from Admission Objective Active Medications: Acetaminophen (Tylenol Tab*) 650 mg PO Q4H PRN PRN Reason: MILD PAIN or TEMP > 100.4 Last Admin: 03/08/19 22:01 Dose: 650 mg Cyclobenzaprine HCl (Flexeril Tab*) 10 mg PO Q8HR PRN PRN Reason: SPASMS Last Admin: 03/09/19 00:58 Dose: 10 mg Duloxetine HCl (Cymbalta Cap*) 60 mg PO DAILY [facility] Last Admin: 03/09/19 09:19 Dose: 60 mg Fluticasone Propionate (Flonase Nasal [place] 50mcg*) 1 spray BOTH NARES DAILY [facility] Last Admin: 03/09/19 09:19 Dose: 1 spray Heparin Sodium (Porcine) (Heparin Vial(*)) 5,000 units SUBCUT Q8HR [facility] Last Admin: 03/09/19 07:19 Dose: 5,000 units Metronidazole/Sodium Chloride (Flagyl 500 Mg Ivpb*) 500 mg in 100 mls @ 100 mls /hr IVPB Q8H [facility] Last Admin: 03/09/19 03:48 Dose: 100 mls/hr Sodium Chloride (Ns 0.9% 1000 Ml) 1,000 mls @ 125 mls/hr IV PER RATE [facility] Last Admin: 03/09/19 01:12 Dose: 125 mls/hr Ceftriaxone Sodium 1 gm/ (Sodium Chloride) 50 mls @ 100 mls/hr IVPB Q24H [facility] Last Admin: 03/08/19 20:44 Dose: 100 mls/hr Lorazepam (Ativan Tab(*)) 0.5 mg PO BID [facility] Last Admin: 03/09/19 09:19 Dose: 0.5 mg Mometasone Furoate/Formoterol Fumar (Dulera 200/5 Mdi*) 2 puff INH RT.BID [facility] Last Admin: 03/09/19 09:05 Dose: 2 puff Morphine Sulfate (Morphine Inj (Syringe))*) 2 mg IV Q4H PRN PRN Reason: PAIN - MILD Last Admin: 03/09/19 09:18 Dose: 2 mg Ondansetron HCl (Zofran Inj*) 4 mg IV Q6H PRN PRN Reason: NAUSEA Last Admin: 03/09/19 03:49 Dose: 4 mg Pantoprazole Sodium (Protonix Tab*) 40 mg PO DAILY [facility] Last Admin: 03/09/19 09:19 Dose: 40 mg Zolpidem Tartrate (Ambien Tab*) 10 mg PO BEDTIME PRN PRN Reason: SLEEP Vital Signs - 8 hr 03/09/19 03/09/19 03/09/19 03:15 03:45 03:47 Temperature 100.0 F Pulse Rate 92 Respiratory 16 16 16 Rate Blood Pressure 143/82 (mmHg) O2 Sat by Pulse 98 Oximetry 03/09/19 03/09/19 03/09/19 04:56 07:15 09:05 Temperature Pulse Rate 90 Respiratory 20 14 18 Rate Blood Pressure (mmHg) O2 Sat by Pulse 99 Oximetry 03/09/19 03/09/19 09:18 09:19 Temperature Pulse Rate Respiratory 18 18 Rate Blood Pressure (mmHg) O2 Sat by Pulse Oximetry Oxygen Devices in Use Now: None Appearance: 48 yo male, appears stated age, lying in bed, NAD, actively engaged in conversation Eyes: No Scleral Icterus, PERRLA Ears/Nose/Mouth/Throat: Clear Oropharnyx, Mucous Membranes Moist Neck: NL Appearance and Movements; NL JVP Respiratory: Symmetrical Chest Expansion and Respiratory Effort, Clear to Auscultation Cardiovascular: NL Sounds; No Murmurs; No JVD, RRR, No Edema Abdominal: - - BS present, normoactive, diffuse tenderness with palpation, no distention Lymphatic: No Cervical Adenopathy, No Axillary Adenopathy Extremities: No Edema, No Clubbing, Cyanosis Skin: No Rash or Ulcers Neurological: Alert and Oriented x 3, NL Muscle Strength and Tone Lines/Tubes/Other Access: Clean, Dry and Intact Peripheral IV Result Diagrams: 03/09/19 05:25 03/09/19 05:25 Additional Lab and Data: Lab Results 03/08/19 03/08/19 03/08/19 Range/Units 09:54 09:54 09:54 WBC 11.4 H (3.5-10.8) 10^3/uL RBC 6.27 H (4.18-5.48) 10^6 /uL Hgb 17.8 (14.0-18.0) g/dL Hct 52 (42-52) % MCV 82 (80-94) fL MCH 28 (27-31) pg MCHC 35 (31-36) g/dL RDW 14 (10-15) % Plt Count 320 (150-450) 10^3/uL MPV 6.7 L (7.4-10.4) fL Neut % (Auto) 86.3 % Lymph % (Auto) 5.9 % [place] % (Auto) 6.7 % Eos % (Auto) 0.9 % Baso % (Auto) 0.2 % Absolute Neuts (auto) 9.9 H (1.5-7.7) 10^3/ul Absolute Lymphs (auto) 0.7 L (1.0-4.8) 10^3/ul Absolute Monos (auto) 0.8 (0-0.8) 10^3/ul Absolute Eos (auto) 0.1 (0-0.6) 10^3/ul Absolute Basos (auto) 0.0 (0-0.2) 10^3/ul Absolute Nucleated RBC 0.0 10^3/ul Nucleated RBC % 0.0 Sodium 120 L (135-145) mmol/L Potassium 3.5 (3.5-5.0) mmol/L Chloride 86 L (101-111) mmol/L Carbon Dioxide 22 (22-32) mmol/L Anion Gap 12 H (2-11) mmol/L BUN 13 (6-24) mg/dL Creatinine 0.99 (0.67-1.17) mg/dL Est GFR ( Amer) 98.0 (>60) Est GFR (Non-Af Amer) 81.0 (>60) BUN/Creatinine Ratio 13.1 (8-20) Glucose 148 H (70-100) mg/dL Lactic Acid 2.4 H* (0.5-2.0) mmol/L Calcium 10.1 (8.6-10.3) mg/dL Magnesium 2.2 (1.9-2.7) mg/dL Total Bilirubin 0.80 (0.2-1.0) mg/dL AST 69 H (13-39) U/L ALT 62 H (7-52) U/L Alkaline Phosphatase 96 (34-104) U/L Troponin I 0.02 (<0.04) ng/mL C-Reactive Protein 2.77 (<8.01) mg/L Total Protein 7.4 (6.4-8.9) g/dL Albumin 4.7 (3.2-5.2) g/dL Globulin 2.7 (2-4) g/dL Albumin/Globulin Ratio 1.7 (1-3) Lipase 14 (11.0-82.0) U/L Influenza A (Rapid) (Negative) Influenza B (Rapid) (Negative) 03/08/19 Range/Units 10:10 WBC (3.5-10.8) 10^3/uL RBC (4.18-5.48) 10^6 /uL Hgb (14.0-18.0) g/dL Hct (42-52) % MCV (80-94) fL MCH (27-31) pg MCHC (31-36) g/dL RDW (10-15) % Plt Count (150-450) 10^3/uL MPV (7.4-10.4) fL Neut % (Auto) % Lymph % (Auto) % [place] % (Auto) % Eos % (Auto) % Baso % (Auto) % Absolute Neuts (auto) (1.5-7.7) 10^3/ul Absolute Lymphs (auto) (1.0-4.8) 10^3/ul Absolute Monos (auto) (0-0.8) 10^3/ul Absolute Eos (auto) (0-0.6) 10^3/ul Absolute Basos (auto) (0-0.2) 10^3/ul Absolute Nucleated RBC 10^3/ul Nucleated RBC % Sodium (135-145) mmol/L Potassium (3.5-5.0) mmol/L Chloride (101-111) mmol/L Carbon Dioxide (22-32) mmol/L Anion Gap (2-11) mmol/L BUN (6-24) mg/dL Creatinine (0.67-1.17) mg/dL Est GFR ( Amer) (>60) Est GFR (Non-Af Amer) (>60) BUN/Creatinine Ratio (8-20) Glucose (70-100) mg/dL Lactic Acid (0.5-2.0) mmol/L Calcium (8.6-10.3) mg/dL Magnesium (1.9-2.7) mg/dL Total Bilirubin (0.2-1.0) mg/dL AST (13-39) U/L ALT (7-52) U/L Alkaline Phosphatase (34-104) U/L Troponin I (<0.04) ng/mL C-Reactive Protein (<8.01) mg/L Total Protein (6.4-8.9) g/dL Albumin (3.2-5.2) g/dL Globulin (2-4) g/dL Albumin/Globulin Ratio (1-3) Lipase (11.0-82.0) U/L Influenza A (Rapid) Negative (Negative) Influenza B (Rapid) Negative (Negative) Microbiology and Other Data: Microbiology 03/08/19 14:30 Stool Gross Appearance - Final Stool C. difficile DNA Amplification - Final 027 Presumptive NEGATIVE Toxigenic C.diff NEGATIVE 03/08/19 12:45 Stool Gross Appearance - Final Stool C. difficile DNA Amplification - Final 03/08/19 12:45 Stool Gross Appearance - Final Stool Assess/Plan/Problems-Billing Assessment: Mr. Pederson is a 48 yo male with a PMH significant for HTN, anxiety, unprovoked PE, splenic artery thrombosis, asthma, head and neck cancer s/p chemoradiation who presented to the ER on 03/08/19 with concern for abd pain, n/v /d. - Patient Problems (1) Colitis Code(s): K52.9 - NONINFECTIVE GASTROENTERITIS AND COLITIS, UNSPECIFIED Comment : Mucosal thickening seen on CT; C. diff PCR negative, stool culture pending. Still with significant pain and loose stools, WBC remains elevated Pt reports bloody stools overnight but with normal HH this morning; he is advised to keep nursing informed if it occurs again. Continue metronidazole and ceftriaxone Continue clear liquids and IV hydration. (2) Hyponatremia Code(s): E87.1 - HYPO-OSMOLALITY AND HYPONATREMIA Comment: Improved from admission Continue IVF with NS (3) HTN (hypertension) Code(s): I10 - ESSENTIAL (PRIMARY) HYPERTENSION Comment: With acceptable control Home lisinopril and HCTZ on hold while NPO and having diarrhea Will resume when medically appropriate (4) Asthma Code(s): J45.909 - UNSPECIFIED ASTHMA, UNCOMPLICATED Comment: Not in acute exacerbation Continue home inhaler (on Dulera as therapeutic substitute for Breo Ellipta) (5) GERD (gastroesophageal reflux disease) Code(s): K21.9 - GASTRO-ESOPHAGEAL REFLUX DISEASE WITHOUT ESOPHAGITIS Comment : Continue home pantoprazole. (6) Anxiety Code(s): F41.9 - ANXIETY DISORDER, UNSPECIFIED Comment: Stable Continue home lorazepam and hydroxyzine. (7) DVT prophylaxis Comment: SQ heparin Status and Disposition: OBV admit Attending: Nikos Mcdaniel
[2019-03-09] MEDS: LORazepam TAB(*) 0.5 MG PO PRN (16:17)
[2019-03-09] MEDS: cefTRIAXone(*) 1 GM in NS 0.9% 50 ML* 50 ML IVPB SCH (18:11)
[2019-03-09 19:25] LABS: C Reactive Protein 21.66 mg/L (<8.01)
[2019-03-10] MEDS: Morphine INJ* 2 MG/ML 1 ML SYRINGE (TWO MG - NEW SYRINGE VERSION) IV PRN ×2 (02:29→08:24)
[2019-03-10] MEDS: LORazepam TAB(*) 0.5 MG PO PRN ×3 (03:09→16:57)
[2019-03-10] MEDS: metroNIDAZOLE IV 500 MG/100ML* 500 MG/100 ML BAG IVPB SCH ×2 (04:11→12:35)
[2019-03-10] MEDS: Heparin VIAL(*) 5000 UNITS/ML VIAL (FIVE THOUSAND) SUBCUT SCH ×2 (05:49→15:08)
[2019-03-10] MEDS: NS 0.9% 1000 ML** 1,000 ML IV SCH (07:00)
[2019-03-10] MEDS: Mometasone/Formoter 200/5 MDI INH SCH (07:34)
[2019-03-10 07:53] LABS: ABS Eosinophils 0.1 10^3/ul (0-0.6); ABS Lymphocytes 0.4 10^3/ul (1.0-4.8); ABS Monocytes 0.9 10^3/ul (0-0.8); ABS Neutrophils 7.2 10^3/ul (1.5-7.7); Eosinophil % 1.3 %; Hematocrit 39 % (42-52); Hemoglobin 13.6 g/dL (14.0-18.0); Lymphocyte % 4.6 %; Mean Corpuscular HGB Conc 35 g/dL (31-36); Mean Corpuscular Hemoglobin 28 pg (27-31); Mean Corpuscular Volume 81 fL (80-94); Mean Platelet Volume 6.7 fL (7.4-10.4); Nucleated Red Blood Cells % 0.1; Platelet Count 270 10^3/uL (150-450); Red Blood Count 4.83 10^6 /uL (4.18-5.48); Red Cell Distribution Width 14 % (10-15); White Blood Count 8.7 10^3/uL (3.5-10.8)
[2019-03-10] MEDS: Pantoprazole TAB * 40 MG TAB PO SCH (08:20)
[2019-03-10] MEDS: DULoxetine DR CAP* 60 MG CAP.DR PO SCH (08:20)
[2019-03-10] MEDS: Fluticasone NASAL SPRAY 50MCG* 16 gm SPRAY BTL BOTH NARES SCH (08:20)
[2019-03-10 08:21] LABS: BUN/Creatinine Ratio 8.8 (8-20); C Reactive Protein 33.04 mg/L (<8.01); Calcium 8.3 mg/dL (8.6-10.3); EGFR African American 125.4 (>60); EGFR Non-African American 103.6 (>60); Potassium 3.7 mmol/L (3.5-5.0)
[2019-03-10] MEDS ORDERED: oxyCODONE/Acetamin 5/325 MG* TAB PO PRN (13:11)
[2019-03-10] MEDS ORDERED: HYDROcodone/ACETAMIN 5-325 MG* 1 TAB PO PRN (13:18)
[2019-03-10 16:28] VITALS: BP 130/79
--- NOTE | 2019-03-10 21:36 | DS ---
CC: Dr. Bolivar Diaz * DISCHARGE SUMMARY: DATE OF ADMISSION: 03/08/19 DATE OF DISCHARGE: 03/10/19 PRIMARY CARE PROVIDER: Dr. Bolivar Diaz. DISCHARGE DISPOSITION: To home. CONDITION ON DISCHARGE: Stable. DIET AT DISCHARGE: [place] for 4 days, and then advance as tolerated to regular. DISCHARGE DIAGNOSES: 1. Acute colitis, likely infectious. 2. Hyponatremia due to dehydration and hydrochlorothiazide use. SECONDARY DIAGNOSES: 1. Hypertension. 2. Anxiety. 3. History of unprovoked pulmonary embolism. 4. History of splenic artery thrombosis. 5. History of methicillin-resistant Staphylococcus aureus. 6. Cellulitis of the right knee. 7. Asthma. 8. History of squamous cell neck cancer, status post chemotherapy and radiation in 2018. 9. History of splenic embolectomy as well as status post inferior vena cava filter placement and removal. 10. History of surgery for gynecomastia. 11. History of abdominoplasty. MEDICATIONS AT DISCHARGE: New medications include : 1. Cefdinir 300 mg p.o. b.i.d. for a total of 4 days. 2. Flagyl 500 mg p.o. b.i.d. for a total of 4 days. Remaining medications are unchanged and include: 1. Paxil 10 mg every 8 hours p.r.n. 2. Cymbalta 60 mg daily. 3. Flonase nasal spray 1 to 2 sprays both nostrils daily. 4. [place] 7.5/300 one tablet every 8 hours p.r.n. 5. Atarax 50 mg t.i.d. p.r.n. 6. Xopenex 1 puff every 4 hours p.r.n. 7. Lorazepam 0.5 mg up to 4 times a day p.r.n. 8. Zofran 8 mg on a p.r.n. basis. 9. Protonix 40 mg daily. 10. Testosterone 200 mg IM on Fridays. 11. Ambien 10 mg at bedtime p.r.n. DIAGNOSTIC STUDIES/LAB DATA: On 03/10/19, sodium of 128, potassium of 3.7, chloride 100, carbon dioxide 22, BUN 7, creatinine 0.8. C-reactive protein of 33. White blood cell count of 8.7, hemoglobin of 13.6, hematocrit of 39, platelets of 217. Influenza testing was negative. CT of the abdomen and pelvis, impression: "Mucosal thickening of the descending colon suggestive of colitis." The patient's stool microbiology testing was negative for Shiga toxin, negative for the remaining enteric pathogens including Salmonella, Shigella, Aeromonas, Plesiomonas, Yersinia, and Campylobacter. Stool is also negative for C. diff. Portable chest x-ray, impression: "No evidence of pneumonia. Stigmata of obstructive lung disease. Resolution of previous noted area of consolidation in the superior segment of the left lower lobe on 08/07/[address] HOSPITALIZATION COURSE: Taurus Pederson is a 48-year-old male with a history of squamous cell carcinoma diagnosed and treated with radiation and chemotherapy in 2018. The patient was admitted to the hospital complaining of bilateral lower quadrant abdominal pain, nausea and vomiting. He also was near syncopal when he came in. He was noted to have marked hyponatremia with sodium level of 120. He also had leukocytosis. He was admitted with diagnosis of colitis that was shown on the abdominal CT. He was treated with ceftriaxone and Flagyl with good results. Despite stool testing that was performed that did not show significant enteric pathogens found, the suspicion is that the patient likely had infectious colitis. He did have initially some streaking of the stool with blood and that resolved on day second of his hospital stay. With his history of malignancy, he is recommended to follow up with his primary care provider in regard to colonoscopy in the near future. The patient is going to be continued on his antibiotics for another 4 days and he is recommended on bland diet. Today, he was advanced from liquid to soft solid diet and tolerated it without any problems. The patient is recommended to follow up with his primary care provider in 4 to 7 days. PHYSICAL EXAMINATION AT THE TIME OF DISCHARGE: Blood pressure of 182/87, heart rate of 75 and regular, respiratory rate 16, oxygen saturation 100% on room air , temperature 98.1. General: Very pleasant 48-year-old male who is in no acute distress. Alert and oriented x3. HEENT: Head atraumatic, normocephalic. Eyes: Pupils are equal and reactive to light and accommodation. Oropharynx is clear. Mucosa moist. Neck: Supple. No JVD. No bruits bilaterally. Cardiovascular: Regular rate and rhythm. No murmurs. Respiratory : Clear to auscultation bilaterally. Abdomen: Slightly distended, soft, nontender. Bowel sounds are present in all 4 quadrants. Extremities: There is no edema. Pulses are +2 bilaterally. No clubbing or cyanosis. On neuro evaluation, cranial nerves II through XII intact. Motor strength is 5/5 bilaterally. Please note that this is a short summary of the patient's hospitalization. Please refer to further medical records for details. TIME SPENT: Approximately 32 minutes was spent on patient's discharge. [id number]/[facility] #: [id number] [facility]
== END 2019-03-10 18:05 | disposition home or self-care (01) | DRG 249 ==
LOC: ED 09:39 → MED 13:39 → OBSVTOIN 03-09 11:00
PROVIDERS: ADMIT Internal Medicine; ATTEND Internal Medicine
DX: A09 Infectious gastroenteritis and colitis, unspecified (principal); E87.1 Hypo-osmolality and hyponatremia; L03.115 Cellulitis of right lower limb; E86.0 Dehydration; T50.2X5A Adverse effect of carbonic-anhydrase inhibitors, benzothiadiazides and other diuretics, initial encounter; I10 Essential (primary) hypertension; F41.9 Anxiety disorder, unspecified; K21.9 Gastro-esophageal reflux disease without esophagitis; J45.909 Unspecified asthma, uncomplicated; Z85.828 Personal history of other malignant neoplasm of skin; Z92.21 Personal history of antineoplastic chemotherapy; Z92.3 Personal history of irradiation; Z88.6 Allergy status to analgesic agent; Y92.9 Unspecified place or not applicable; Z86.711 Personal history of pulmonary embolism; Z86.14 Personal history of Methicillin resistant Staphylococcus aureus infection; Z88.8 Allergy status to other drugs, medicaments and biological substances; Z88.4 Allergy status to anesthetic agent; Z82.49 Family history of ischemic heart disease and other diseases of the circulatory system; Z82.3 Family history of stroke; Z80.0 Family history of malignant neoplasm of digestive organs
CPT/HCPCS: 36415; 71046; 74177; 80048; 80053; 83605; 83690; 83735; 84484; 85025; 86140; 87045; 87046; 87077; 87493; 87641; 87899; 93005; 94640; 99285; A9270-GY; G0378; J0696; J1644; J2270; J2405; J2765; Q9967

== ENCOUNTER 2019-05-02 10:56 | Emergency (ER) | payer BC, OTHER ==
[2019-05-02 11:43] VITALS: BP 140/94
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
[2019-05-02] MEDS ORDERED: Acetaminophen TAB* 325 MG PO ONE (12:17)
== END 2019-05-02 13:01 | disposition home or self-care (01) ==
LOC: UCEAST 10:56
DX: S00.83XA Contusion of other part of head, initial encounter (principal); S09.90XA Unspecified injury of head, initial encounter; J44.9 Chronic obstructive pulmonary disease, unspecified; Z88.8 Allergy status to other drugs, medicaments and biological substances; Z88.4 Allergy status to anesthetic agent; W22.8XXA Striking against or struck by other objects, initial encounter; Y92.9 Unspecified place or not applicable
CPT/HCPCS: 70486; 99211; A9270-GY; G0463